=== PATIENT | male | born 1955 | race Caucasian/White ===

== ENCOUNTER 2020-11-11 08:29 | Outpatient (REF) | payer BC, SELFPAY | END 2020-11-11 08:30 | disposition home or self-care (01) | LOC: HO.LAB 08:29 | PROVIDERS: PCP Internal Medicine Medical Oncology; Visit Provider Internal Medicine Medical Oncology | DX: Z20.828 Contact with and (suspected) exposure to other viral communicable diseases (principal) | CPT/HCPCS: C9803; U0003 ==

== ENCOUNTER 2022-02-02 11:05 | Outpatient (REF) | payer BC, SELFPAY ==
[2022-02-02 11:40] LABS: Alanine Aminotransferase 13 U/L (0-40); Albumin Level 4.3 g/dL (3.5-5.0); Alkaline Phosphatase 55 U/L (39-117); Anion Gap 11 (12-20); Aspartate Amino Transferase 20 U/L (5-37); Bilirubin Total 0.7 mg/dL (0.0-1.0); Blood Urea Nitrogen 19 mg/dL (9-16); Calcium 10.3 mg/dL (8.4-10.2); Carbon Dioxide 28 mmol/L (22-29); Chloride 102 mmol/L (96-108); Estimated Glomerular Filt Rate > 60; Glucose Random 95 mg/dL (60-115); Potassium 4.5 mmol/L (3.3-5.1); Sodium 136 mmol/L (135-145); Total Protein 7.3 g/dL (6.5-8.0)
== END 2022-02-02 11:06 | disposition home or self-care (01) ==
LOC: HO.LAB 11:05
PROVIDERS: PCP Internal Medicine Medical Oncology; Visit Provider Internal Medicine Medical Oncology
DX: E66.3 Overweight (principal)
CPT/HCPCS: 36415; 80053

== ENCOUNTER 2022-02-05 16:19 | Outpatient (REF) | payer BC, SELFPAY ==
--- NOTE | ~2022-02-05 | MR_ITS ---
EXAMINATION: MR BRAIN WITHOUT AND WITH CONTRAST CLINICAL INFORMATION: Right parietal centrum semiovale ovale. COMPARISON: None available. TECHNIQUE: Multiplanar, multisequence imaging of the brain was performed before and after the intravenous administration of 8 mL of Gadavist. FINDINGS: There is no acute infarction, mass, hemorrhage, or extra-axial collection. No abnormal or unexpected intracranial enhancement is seen. The ventricles, sulci, and basilar cisterns are normal in size and configuration. Mild to moderate patchy foci of T2/FLAIR hyperintensity are seen within the periventricular and deep cerebral white matter. 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 The flow voids of the major intracranial arteries appear intact. The orbital contents appear normal. There is complete opacification of the right maxillary sinus with expansile soft tissue extending into the middle meatus. Moderate right and mild left ethmoid mucosal thickening is also noted. MR/MR head/brain wo/w con IMPRESSION: No acute intracranial abnormality, mass, or enhancing lesion. Nonspecific foci of T2/FLAIR hyperintensity seen in the bilateral cerebral white matter. Incidentally noted complete opacification of the right maxillary sinus with expansile soft tissue extending into the middle meatus. Consider ENT follow-up.
== END 2022-02-05 16:20 | disposition home or self-care (01) ==
LOC: HO.MRI 16:19
PROVIDERS: PCP Internal Medicine Medical Oncology; Visit Provider Internal Medicine Medical Oncology
DX: Q28.2 Arteriovenous malformation of cerebral vessels (principal); R90.0 Intracranial space-occupying lesion found on diagnostic imaging of central nervous system
CPT/HCPCS: 70553; A9585

== ENCOUNTER → 2022-02-17 07:10 | Outpatient (REF) | payer BC, SELFPAY ==
--- NOTE | 2022-02-17 07:18 | HM_ITS ---
* Total monitoring time 5 days and 16 hours. * Underlying rhythm is sinus. Average rate 64/Min. Range 43 to 115/Min. * No atrial fibrillation or flutter. * There were 17 pauses noted, longest 3.2 seconds at 03:22am. * Mobitz 1 second-degree heart block also noted. * These episodes are mainly at nighttime but some daytime episodes are also seen. * Occasional supraventricular ectopy with minimal burden. * Frequent ventricular ectopy. 2 morphologies. 149 couplets. Overall burden about 5%. * No patient events. MTDD
== END ==
LOC: HO.CARD 07:10
PROVIDERS: Visit Provider Internal Medicine Medical Oncology
DX: I48.91 Unspecified atrial fibrillation (principal)
CPT/HCPCS: 93242

== ENCOUNTER 2022-06-04 07:22 | Emergency (ER) | payer BC, SELFPAY ==
--- NOTE | ~2022-06-04 | XR_ITS ---
EXAMINATION: XR ANKLE, RIGHT CLINICAL INFORMATION: Right ankle pain and swelling. COMPARISON: None TECHNIQUE: AP, lateral, and mortise views of the right ankle. FINDINGS: Nonacute deformity is seen at the level the distal fibular metaphysis. The distal tibia is intact. Minimal tibiotalar degenerative joint changes are seen. The tarsal bones are normally aligned. There is a small plantar calcaneal spur. Mild soft tissue swelling is seen medially. XR/XR ankle RT min 3V IMPRESSION: 1. Mild soft tissue swelling medially without acute underlying osseous abnormality. 2. Probable old healed distal fibular metaphysis fracture. 3. Minimal tibiotalar degenerative joint changes suggesting osteoarthritis. 4. Small plantar calcaneal spur.
[2022-06-04 07:46] VITALS: BP 180/100; PULSE 50; RESP 16; TEMP 36.6; O2SAT 98; BMI 26.2
--- NOTE | 2022-06-04 07:51 | ED_ITS ---
HPI - Extremity Injury (Lower) General Chief Complaint: Extremity Injury, Lower Stated Complaint: R blk&blue ankle with knot Time Seen by Provider: 06/04/22 07:51 Source: patient Mode of arrival: ambulatory Limitations: no limitations History of Present Illness HPI Narrative: Patient is a 67 year old male presenting to the emergency department today with bruising to his right inner ankle. Patient states that he doesn't remember hitting it or bumping it on anything but he noticed it a few days ago and wanted to have it checked out. Patient states that it does not hurt to bear weight on it. Patient states that he had a previous fibula fracture on that same side, years ago. Patient denies any dizziness, lightheadedness, abdominal pain, nausea, vomiting, fever, chills, blurry vision, double vision, loss of vision, chest pain, difficulty breathing, shortness of breath, back pain, night sweats, pain with urination, increased urinary frequency, increased urinary urgency, blood in his urine or stool, syncope or a near syncopal episode, recent trauma or falls, bowel incontinence, bladder incontinence, bowel retention, bladder retention, or any other complaints at this time. Onset (ago): day(s) (5) Severity: mild Severity scale (1-10): 1 Exacerbating factors: nothing Related Data Allergies Allergy/AdvReac Type Severity Reaction Status Date / Time oxycodone [From PERCOCET] AdvReac Unknown VOMITING Unverified 08/15/20 14:40 Review of Systems Constitutional: Constitutional: Reports no additional constitutional complaints, Denies chills, Denies fever(s) and Denies night sweats Eyes: Eyes: Reports no additional eye complaints, Denies blurry vision, Denies change in vision, Denies diplopia, Denies eye discharge, Denies loss of vision and Denies eye pain ENT: Denies dizziness Cardiovascular: Cardiovascular: Reports no additional cardiovascular complaints, Denies chest pain, Denies lightheadedness, Denies Loss of Consciousness and Denies dyspnea Respiratory: Respiratory: Reports no additional respiratory complaints and Denies dyspnea Gastrointestinal: Gastrointestinal: Reports no additional gastrointestinal complaints, Denies abdominal pain, Denies melena, Denies hematochezia, Denies change in bowel habits and Denies change in stool character Genitourinary: Genitourinary: Reports no additional male genitourinary complaints, Denies hematuria, Denies oliguria, Denies difficulty urinating, Denies dysuria, Denies urinary frequency, Denies urinary hesitancy, Denies urinary incontinence and Denies urinary urgency Musculoskeletal: Musculoskeletal: Reports no additional musculoskeletal complaints, Denies numbness and Denies tingling Integumentary/Breasts: Comments: bruising to right ankle Neurologic: Denies dizziness, Denies loss of vision, Denies numbness and Denies tingling Psychiatric: Psychiatric: Reports no additional psychiatric complaints Endocrine: Endocrine: Reports no additional endocrine complaints Hematologic/Lymphatic: Hematologic/Lymphatic: Reports no additional hematologic/lymphatic complaints Allergic/Immunologic: Allergic/Immunologic: Reports no additional allergic/immunologic complaints [facility] Past Medical History Attestation statement: The following information was validated with the patient. Source: old records reviewed Social History Social History Advance Directives: Yes Advance Directives Information Provided: Yes Advance Directives on File: No Physical Exam Vital Signs: Vital Signs: Last Vital Signs Temp 98 F 06/04/22 07:46 Pulse 50 06/04/22 07:46 Resp 16 06/04/22 07:46 BP 180/100 H 06/04/22 07:46 Pulse Ox 98 06/04/22 07:46 O2 Del Method 06/04/22 07:46 BMI result Body Mass Index 26.2 Const: General: cooperative, no acute distress, alert and awake Nutritional Appearance: well nourished Orientation/consciousness: patient oriented x3 Limitations: no limitations HEENT: Head: Yes normal to inspection and Yes atraumatic Ears: hearing grossly normal bilaterally and external ears normal General nose exam: Normal external nose present, no nasal discharge noted and no epistaxis Face and sinus: Yes normal facial exam, No abrasion and No laceration Mouth: Normal oral and palatal mucosa present, no drooling and no muffled voice Eyes: General: appearance normal, both eyes and all related structures Periorbital: periorbital findings normal Eyelids: Yes eyelids normal Conjunctivae: conjunctivae normal Pupils: Equal, round and reactive pupils present EOM: EOMs intact bilaterally Neck: Neck: Yes normal visual inspection, Yes full ROM and Yes no lymphadenopathy Chest: Chest palpation & inspection: normal inspection of the chest Resp: Effort & Inspection: normal respiratory effort and able to speak in complete sentences Auscultation: clear to auscultation bilaterally Cardio: Rate: regular rate Rhythm: regular rhythm GI: Inspection: Yes normal to inspection Neuro: General: patient oriented x3 and moves all extremities Cranial nerves: Yes Equal, round and reactive pupils present Cognition (Neuro): normal cognition Motor exam (neuro): 5/5 motor strength present throughout Sensory Exam: Normal double simultaneous stimulation for sensation Coordination: [id number] test normal Extrem: Other: minimal bruising to the medial aspect of the right ankle with no acute tenderness to palpation General: Yes full ROM and Yes capillary refill normal Psych: Appearance: grossly normal Mental Status: mental status grossly normal Affect: normal affect Attitude: cooperative Thought process: Normal thought process present Thought content: Normal thought content present Insight: Good insight present (Psych) MDM - Extremity Injury (Lower) MDM Narrative Medical decision making narrative: Patient is a 67 year old male presenting to the emergency department today with right ankle bruising. Patient's physical exam showed minimal, old appearing, bruising to the medial right ankle. Patient's right ankle x-ray showed no acute process. I explained my physical exam findings as well as all test results to the patient. I answered all questions asked by the patient. I stressed the importance of the patient taking his medication as prescribed. I stressed the importance of the patient following up with his primary care provider. I stressed the importance of the patient returning to the emergency department immediately if his symptoms were to worsen or if he were to develop any dizziness, shortness of breath, difficulty breathing, chest pain, blurry vision, loss of vision, nausea, vomiting, abdominal pain, fever, chills, back pain, or any other complaints. Patient verbalized agreement and understanding with this treatment plan and discharge. Differential Diagnosis Differential diagnosis: Unlikely ankle fracture (ankle bruising) Medical Records Attestation: I reviewed the patient's medical records. Imaging Data Right ankle x-ray: Attestation: I personally reviewed and interpreted this imaging study as follows: My impression: No acute process Radiologist's impression: EXAMINATION: XR ANKLE, RIGHT CLINICAL INFORMATION: Right ankle pain and swelling.? COMPARISON: None? TECHNIQUE: AP, lateral, and mortise views of the right ankle. FINDINGS: Nonacute deformity is seen at the level the distal fibular metaphysis. The distal tibia is intact. Minimal tibiotalar degenerative joint changes are seen. The tarsal bones are normally aligned. There is a small plantar calcaneal spur. Mild soft tissue swelling is seen medially. XR/XR ankle RT min 3V IMPRESSION: ? 1. Mild soft tissue swelling medially without acute underlying osseous abnormality. 2. Probable old healed distal fibular metaphysis fracture. 3. Minimal tibiotalar degenerative joint changes suggesting osteoarthritis. 4. Small plantar calcaneal spur. Dictated By: Angel Ye MD Signed By: Electronically signed by Angel Ye MD 06/04/22 0808 Discharge Plan Discharge Clinical Impression: Acute ankle pain Patient Disposition: Home, Self-Care Instructions: Arthralgia (ED) Additional Instructions: Follow up with your primary care provider. Return to the emergency department immediately if your symptoms worsen or if you develop any dizziness, shortness of breath, difficulty breathing, chest pain, blurry vision, loss of vision, nausea, vomiting, abdominal pain, fever, chills, back pain, or any other complaints. Referrals: Jacobo Radford MD [Primary Care Provider] - (Follow up with your primary care provider.) Print Language: Georgian
== END 2022-06-04 09:02 | disposition home or self-care (01) ==
PROVIDERS: Emergency Provider Emergency Medicine; PCP Internal Medicine Medical Oncology
DX: S93.401A Sprain of unspecified ligament of right ankle, initial encounter (principal); X50.1XXA Overexertion from prolonged static or awkward postures, initial encounter; Y93.9 Activity, unspecified; Y92.9 Unspecified place or not applicable; Y99.9 Unspecified external cause status
CPT/HCPCS: 29515; 73610; 99282; 99283

== ENCOUNTER → 2022-07-31 09:25 | Outpatient (BNVA) | payer BC, SELFPAY | PROVIDERS: PCP Internal Medicine Medical Oncology; Visit Provider Internal Medicine Cardiovascular Disease | DX: I48.0 Paroxysmal atrial fibrillation (principal); I45.5 Other specified heart block; G47.10 Hypersomnia, unspecified | CPT/HCPCS: 93005 ==

== ENCOUNTER → 2022-08-14 07:25 | Outpatient (REF) | payer BC, SELFPAY ==
--- NOTE | 2022-08-14 07:28 | CA_ITS ---
Acquisition Time: 2022-08-14 08:28:44 Total Exercise Time: 00:06:50 Test Indications: HEART BLOCK Medications: Protocol: ANTHONY Max HR: 144 BPM 93% of Pred: 154 BPM Max BP: 182/082 mmHG Max Work Load: 8.2 METS Exercise stress test with exercise 6 min 50 sec of Anthony protocol, achieving 94% MPHR 8.2 METs, with moderate sob, no chest discomfort, with isolated PAC and PVCs, with normotensive and normal chronotropic response to exercise, without EKG changes meeting criteria for ischemia. Test reviewed with Dr Jones Referred By: Joey Jones Overread By: VIJI VALLES
--- NOTE | 2022-08-14 07:28 | CA_ITS ---
Transthoracic Echocardiogram Patient (Last, First, Middle): Raymundo Schwartz R Gender: Male Date of : 1955 Age: 67 Procedure Date: 08/14/2022 Procedure Type: Transthoracic Echocardiogram Location: OP Height: 175.26 cm Weight: 77.11 kg BSA: 1.93 m2 Heart Rate: 49 bpm BP: 150 / 75 mmHg Stiff Leg Derrick Operator: GAIL Referring MD: Joey Jones MD Podiatrist: Joey Jones MD Symptoms: I48.0 - Paroxysmal atrial fibrillation Study Quality: Good ECG Rhythm: Bradycardia Conclusions: - 1. Normal LV systolic function with grade 1 diastolic dysfunction 2. Normal cardiac valvular Doppler 3. Normal RV systolic pressure 4. Mildly dilated ascending aorta 4.1 cm 5. No pericardial effusion Findings Left Ventricle Normal left ventricular size, thickness, and systolic function. The visually estimated ejection fraction is between 60-65%. Spectral Doppler is indicative of an impaired relaxation filling pattern. E/E prime ratio is <8, consistent with normal filling pressures. Peak GLS is -18.4%, within normal limits. Right Ventricle Normal right ventricular cavity size and systolic function. Atria The left atrium is normal in size. There is lipomatous hypertrophy of the interatrial septum. There is no evidence of interatrial shunt. The right atrium is normal in size. Aortic Valve The aortic valve structure and function is likely normal. There is no aortic valve stenosis. There is no aortic valve regurgitation. Mitral Valve Normal mitral valve structure and function. There is trace mitral valve regurgitation. There is no mitral valve stenosis. Pulmonic Valve The pulmonic valve is likely normal. There is trace pulmonic valve regurgitation. Tricuspid Valve Normal tricuspid valve structure. There is trace tricuspid valve regurgitation. The right ventricular systolic pressure is normal. The right ventricular systolic pressure is 15 mmHg. Normal right atrial pressure. There is no evidence of pulmonary hypertension. Great Vessels The pulmonary artery was not well visualized. There is mild dilatation of the ascending aorta measuring 4.10 cm. Venous The inferior vena cava is normal in size and collapses greater than 50% with inspiration. Pericardium/Pleural There is no evidence of pericardial effusion. Prior Study Comparison No prior study available for comparison. Measurements 2D Linear Measurements IVSd: 1.12 0.6-0.9/0.6-1.0 cm LVIDd: 4.60 3.9-5.3/4.2-5.9 cm LVIDd Index: 2.38 2.4-3.2/2.2-3.1 cm/m2 LVIDs: 2.89 2.0-3.6 cm LVPWd: 0.85 0.7-1.1 cm LA Diam: 3.70 2.7-3.8/3.0-4.0 cm LAIDs Index: 1.92 1.5-2.3 cm/m2 LV Mass: 193.03 67-162/88-224 g LV Mass Index: 100.02 43-95/49-115 g/m2 LVOT Diam: 2.10 3.0+(-)1.3 cm 2D Systolic Function EF 4C: 59.70 >55% EF 2C: 62.70 >55% EF BiP: 61.90 >55% Mitral Valve MV Pk E: 0.68 MV PK A: 0.70 MV Decel Time: 425.00 E/A: 1.00 E'Lateral: 9.90 E'Medial: 6.85 E/E' Med: 9.90 E/E' Lat: 6.90 PHT: 124.00 MVA PHT: 1.77 Decel Ross: 1.60 Aortic Valve AoV Pk Ananth: 1.31 AoV Mn Ananth: 0.90 AoV VTI: 0.30 AoV Pk Grad: 7.00 Aov Mn Grad: 4.00 ALYSSIA Cont.VTI: 2.13 LVOT LVOT Pk Ananth: 0.83 LVOT Mn Ananth: 0.54 LVOT VTI: 0.19 LVOT Pk Grad: 3.00 LVOT Mn Grad: 1.00 LVOT Diam: 2.10 LVOT Area: 3.46 Diastolic Function MV Pk E: 0.68 MV Pk A: 0.70 E/A: 1.00 E'Medial: 6.85 E/E' Med: 9.90 E' Laterial: 9.90 E/E' Lat: 6.90 Right Ventricle TAPSE (mm): 21.30 TVS' Ananth: 13.20 Tricuspid Valve TR Pk Ananth: 1.71 TR Pk Grad: 12.00 RA Press: 3.00 RVSP: 15.00 Great Vessels Aorta Sinus of Valsalva: 3.90 2.0-3.5 cm Ao Asc: 4.10 2.1-3.4 cm Pulmonary Valve PV Pk Ananth: 0.70 Peak PV Grad: 2.00 Updated in Other Vendor System with Status of Final Joey Jones MD electronically signed on 08/15/2022 11:48:29 AM with status of Final
== END ==
LOC: HO.CARD 07:25
PROVIDERS: Visit Provider Internal Medicine Cardiovascular Disease
DX: I48.0 Paroxysmal atrial fibrillation (principal); I45.5 Other specified heart block
CPT/HCPCS: 93017; 93306; 93356

== ENCOUNTER → 2022-08-26 08:35 | Outpatient (REF) | payer BC, SELFPAY | LOC: HO.SL 08:35 | PROVIDERS: PCP Internal Medicine Medical Oncology; Visit Provider Internal Medicine Cardiovascular Disease | DX: Z13.89 Encounter for screening for other disorder (principal) ==

== ENCOUNTER 2023-10-14 11:00 | Outpatient (AMB) | payer BC, SELFPAY ==
[2023-10-14 11:14] VITALS: BP 138/74; PULSE 63; BMI 26.0
--- NOTE | 2023-10-14 11:14 | MHC.OFFVIS ---
Intake Vital Signs 10/14/23 11:14 Height 5 ft 9 in Weight 176 lb 5.917 oz BMI 26.0 BP 138/74 Blood Pressure Location Lt brachial Position Sitting Pulse 63 Intake Visit Reasons: 1 year follow up Intake Note: 1 year follow-up with ekg feeling good [employer] Required: No Allergies oxycodone [From PERCOCET] Adverse Reaction (Unknown, Verified 10/06/22 10:46) VOMITING Medication List - Last Reconciled 10/14/23 by Joey Jones MD amlodipine 5 mg PO DAILY 90 days fluoxetine 10 mg PO DAILY HPI HPI Comments History of Present Illness Details Raymundo comes for follow-up. He denies any cardiovascular complaints. He has been on amlodipine therapy for blood pressure control at this point time. He denies any symptoms of prolonged palpitation irregular heartbeat. Denies any lightheadedness, syncope. No exertional chest pain or shortness of breath. Echocardiogram last at shown mild thoracic aortic aneurysm at 4.1 cm. [facility] Medical History HTN (hypertension) Thoracic aortic aneurysm Paroxysmal atrial fibrillation Social History Alcohol intake: current Alcohol intake frequency: 0-2 drinks per day Alcohol type: beer Patient Tobacco Use Status: Former Tobacco user Quit Date: 1992 Substance Use Type: Marijuana Review of Systems Const Denies chills, Denies fatigue, Denies fever(s), Denies frequent falls, Denies weakness, Denies weight gain and Denies weight loss ENT Denies dizziness Card Denies chest pain, Denies leg edema, Denies lightheadedness, Denies palpitations, Denies dyspnea, Denies dyspnea on exertion, Denies orthopnea and Denies other (loss of consciousness) Resp Denies cough, Denies dyspnea and Denies dyspnea on exertion GI Denies hematochezia and Denies change in stool character Musc Denies abnormal gait, Denies muscle weakness, Denies numbness, Denies radiating pain into limb and Denies tingling Neuro Denies Abnormal speech present, Denies abnormal gait, Denies dizziness, Denies frequent falls, Denies numbness, Denies tingling and Denies weakness Endo Denies fatigue and Denies palpitations Physical Exam Vital Signs: Last Vital Signs Pulse 63 10/14/23 11:14 BP 138/74 10/14/23 11:14 BMI result Body Mass Index 26.0 Const General: cooperative, comfortable, no acute distress, well developed, alert, awake and Physically active Nutritional Appearance: average body habitus and well nourished Orientation/consciousness: patient oriented x3 Limitations: no limitations HEENT Head: Yes atraumatic Neck Neck: Yes trachea midline, Yes supple and Yes no JVD Chest Chest palpation & inspection: normal inspection of the chest Resp Effort & Inspection: normal respiratory effort Auscultation: clear to auscultation bilaterally Cardio Jugular venous distension: no JVD Palpation: normal PMI Rate: regular rate Rhythm: regular rhythm Heart sounds: S1 normal heart sound present, S2 normal heart sound present, no click, no gallops and no murmurs GI Auscultation: normal bowel sounds Skin General skin exam: no rashes or lesions noted Neuro General: patient oriented x3 and no focal motor deficits Speech: No Abnormal speech present Extrem General: Yes no clubbing, cyanosis or edema Office Procedures EKG Details: EKG shows normal sinus rhythm with nonspecific changes in inferior lead [id number], Complete Assessment & Plan Assessment & Plan (1) Paroxysmal atrial fibrillation: Code(s): I48.0 - Paroxysmal atrial fibrillation Plan: Paroxysmal atrial fibrillation without any overt recurrent symptoms. Although he is completely asymptomatic at the time of his detection of atrial fibrillation. He does have underlying risks to have recurrent atrial fibrillation which could be asymptomatic. Avoidance of stimulants was discussed advised to call me with any new symptoms. Cannot tolerate metoprolol therapy due to pauses noted during sleep hours. Advise sleep study which is not been done as yet. Echocardiogram in near future to assess for biatrial chamber size and LV systolic function as well as ascending aortic aneurysm see below. Recommend oral anticoagulation therapy with Eliquis to reduce stroke risk given CHADSVASc score of 2. Semi annual renal function test should be pursued. He agrees (2) Thoracic aortic aneurysm: Code(s): I71.20 - Thoracic aortic aneurysm, without rupture, unspecified Plan: Thoracic aortic aneurysm of mild severity. Follow-up echocardiogram near future. Management of thoracic aortic aneurysm was discussed. Blood pressure is currently well optimized. Advised to continue current blood pressure regimen. Advised to monitor blood pressure at home and maintain a log. No surgical intervention required at this point time. He understands and agrees. Will follow up in the clinic in 1 year's time, sooner p.r.n.. Thank you for allowing me to partake in his care Orders: Orders CA echo transthoracic complete Today I71.20 - Thoracic aortic aneurysm, without rupture, unspecified Basic Metabolic Panel Today I71.20 - Thoracic aortic aneurysm, without rupture, unspecified Medications: New apixaban (Eliquis) 5 mg PO BID 60 tabs 5RF I71.20 - Thoracic aortic aneurysm, without rupture, unspecified Coding Level of Care Code Est Pt Level 4 (86325) Diagnoses Paroxysmal atrial fibrillation I48.0 Thoracic aortic aneurysm I71.20 CPT Codes EKG - CPT: 11853-[id number], Complete ([id number])
== END 2023-10-14 11:33 | disposition home or self-care (01) ==
PROVIDERS: Visit Provider Internal Medicine Cardiovascular Disease
DX: I48.0 Paroxysmal atrial fibrillation (principal); I71.20 Thoracic aortic aneurysm, without rupture, unspecified
CPT/HCPCS: 93010; 99214

== ENCOUNTER → 2023-10-14 11:00 | Outpatient (BNVA) | payer BC, SELFPAY | PROVIDERS: Visit Provider Internal Medicine Cardiovascular Disease | DX: I48.0 Paroxysmal atrial fibrillation (principal); I71.20 Thoracic aortic aneurysm, without rupture, unspecified | CPT/HCPCS: 93005 ==

== ENCOUNTER → 2023-11-09 09:39 | Outpatient (REF) | payer BC, SELFPAY ==
--- NOTE | 2023-11-09 09:45 | CA_ITS ---
Transthoracic Echocardiogram Patient (Last, First, Middle): Raymundo Schwartz R Gender: Male Date of : 1955 Age: 68 Procedure Date: 11/09/2023 Procedure Type: Transthoracic Echocardiogram Location: OP Height: 175.26 cm Weight: 79.38 kg BSA: 1.95 m2 Heart Rate: 48 bpm BP: 146 / 80 mmHg Consultant Nurse: GAIL Referring MD: Joey Jones MD Symptoms: I71.20 - Thoracic aortic aneurysm, without rupture, unspecified Study Quality: Good ECG Rhythm: Bradycardia Conclusions: - The left ventricular systolic function is normal. The calculated ejection fraction is 62% by biplane method. - The basal inferior and basal inferolateral segments are hypokinetic. - No obvious valvular pathology seen on this study. - There is mild dilatation of the ascending aorta measuring 4.30 cm. Findings Left Ventricle Normal left ventricular cavity size. There is normal left ventricular wall thickness. The left ventricular systolic function is normal. The calculated ejection fraction is 62% by biplane method. There is no evidence of regional wall motion abnormalities. Diastolic function is normal for age. LV peak GLS -17.8%. Wall Motion Rest Echo Findings The basal inferior and basal inferolateral segments are hypokinetic. Right Ventricle Normal right ventricular cavity size and systolic function. Atria Both atria are normal in size. Aortic Valve There is a normal trileaflet aortic valve. There is no aortic valve stenosis. There is no aortic valve regurgitation. Mitral Valve The mitral valve appears normal. There is trace mitral valve regurgitation. There is no mitral valve stenosis. Pulmonic Valve The pulmonic valve is likely normal. Tricuspid Valve Normal tricuspid valve structure. There is trace tricuspid valve regurgitation. Great Vessels There is mild dilatation of the ascending aorta measuring 4.30 cm. Venous The inferior vena cava is normal in size and collapses greater than 50% with inspiration. Pericardium/Pleural There is no evidence of pericardial effusion. Prior Study Comparison Changes noted compared to prior study dated: 08/14/2022. see comment on wall motion Recommendations, Care & Conclusions No obvious valvular pathology seen on this study. Measurements 2D Linear Measurements IVSd: 0.91 0.6-0.9/0.6-1.0 cm LVIDd: 4.98 3.9-5.3/4.2-5.9 cm LVIDd Index: 2.55 2.4-3.2/2.2-3.1 cm/m2 LVIDs: 2.77 2.0-3.6 cm LVPWd: 0.93 0.7-1.1 cm LA Diam: 3.80 2.7-3.8/3.0-4.0 cm LAIDs Index: 1.95 1.5-2.3 cm/m2 LV Mass: 201.46 67-162/88-224 g LV Mass Index: 103.31 43-95/49-115 g/m2 LVOT Diam: 2.20 3.0+(-)1.3 cm 2D Systolic Function EF 4C: 55.50 >55% EF 2C: 68.20 >55% EF BiP: 62.40 >55% Mitral Valve MV Pk E: 0.59 MV PK A: 0.82 MV Decel Time: 275.00 E/A: 0.70 E'Lateral: 10.80 E'Medial: 5.87 E/E' Med: 10.00 E/E' Lat: 5.40 PHT: 81.00 MVA PHT: 2.72 Decel [place]: 2.13 Aortic Valve AoV Pk Ananth: 1.17 AoV Mn Ananth: 0.82 AoV VTI: 0.26 AoV Pk Grad: 5.00 Aov Mn Grad: 3.00 ALYSSIA Cont.VTI: 2.52 LVOT LVOT Pk Ananth: 0.78 LVOT Mn Ananth: 0.55 LVOT VTI: 0.17 LVOT Pk Grad: 2.00 LVOT Mn Grad: 1.00 LVOT Diam: 2.20 LVOT Area: 3.80 Diastolic Function MV Pk E: 0.59 MV Pk A: 0.82 E/A: 0.70 E'Medial: 5.87 E/E' Med: 10.00 E' Laterial: 10.80 E/E' Lat: 5.40 Right Ventricle TAPSE (mm): 17.80 TVS' Ananth: 10.20 Tricuspid Valve TR Pk Ananth: 1.04 TR Pk Grad: 4.00 RA Press: 3.00 RVSP: 7.00 Great Vessels Aorta Sinus of Valsalva: 3.90 2.0-3.5 cm Ao Asc: 4.30 2.1-3.4 cm Pulmonary Valve PV Pk Ananth: 0.69 Peak PV Grad: 2.00 Updated in Other Vendor System with Status of Final Lowell Fuentes MD electronically signed on 11/10/2023 9:02:06 AM with status of Final
== END ==
LOC: HO.CARD 09:39
PROVIDERS: PCP Internal Medicine Medical Oncology; Visit Provider Internal Medicine Cardiovascular Disease
DX: I71.20 Thoracic aortic aneurysm, without rupture, unspecified (principal)
CPT/HCPCS: 93306; 93356

== ENCOUNTER → 2023-11-09 09:45 | Outpatient (BNV) | payer BC, SELFPAY | PROVIDERS: PCP Internal Medicine Medical Oncology; Visit Provider Internal Medicine | DX: R94.31 Abnormal electrocardiogram [ECG] [EKG] (principal); I71.20 Thoracic aortic aneurysm, without rupture, unspecified | CPT/HCPCS: 93306 ==

== ENCOUNTER → 2024-02-03 08:36 | Outpatient (REF) | payer BC, SELFPAY ==
--- NOTE | ~2024-02-03 | NM_ITS ---
Myocardial perfusion study Indication: Abnormal echocardiogram to evaluate for myocardial ischemia Technique: The patient was brought in for a Lexiscan perfusion study on 02/03/2024. Patient performed low-level exercise and was injected 0.4 mg of Lexiscan intravenously. Within a minute of injection, 25 mCi of sestamibi was given intravenously. Images were obtained using the SPECT gamma camera interlaced with the gating device. Images were obtained in supine position. Resting perfusion study was performed on 02/04/2024. Patient was administered 25 mCi of sestamibi intravenously at rest. Images were then obtained in supine position. Images obtained with and without CT attenuation. Total DLP 142 mGy-cm. Images were processed with the software and compared side to side in short axis, horizontal long axis and vertical long axis views. Findings: The stress perfusion study showed non attenuated images show moderately reduced uptake in the distal inferolateral as well as lateral and mildly reduced uptake in the remainder of inferolateral wall of the LV myocardium. Attenuated corrected images show mildly reduced uptake in the apex, and distal anterior wall of the LV myocardium.. The gated study shows normal LV systolic function with calculated LVEF of 62%. LV cavity is normal in size. The gated study shows normal systolic wall thickening and contraction of segments. Resting study shows non attenuated images show improved uptake in the inferolateral as well as the distal lateral wall of the LV myocardium.. Gating at rest reveals normal systolic wall motion with ejection fraction at 55%. The findings are consistent with mild to moderate intensity reversible defect in the inferolateral as well as distal lateral wall of the LV myocardium which could suggest ischemia.. NM/NM cardiolite stress test Impression: 1. Myocardial perfusion imaging study shows mild to moderate intensity reversible defect in the inferolateral and apical portion of the lateral wall suggestive of ischemia probably in circumflex territory 2. Gated LVEF is 62% 3. Transient ischemic dilatation not present EKG is nondiagnostic for ischemia
--- NOTE | 2024-02-03 08:38 | CA_ITS ---
Acquisition Time: 2024-02-03 09:21:37 Total Exercise Time: 00:02:00 Test Indications: Afib Medications: See H Protocol: LEXISCAN Max HR: 090 BPM 58% of Pred: 153 BPM Max BP: 160/088 mmHG Max Work Load: 1.0 METS Pharmacological stress test with Lexiscan injection while sitting and kicking his legs, without anginal symptoms, with isolated PVCs, with normotenisve response to exericse, with nondiagnostic EKGs. Aminophylline 75mg IVP given to reverse Lexiscan. Nuclear images pending. Test reviewed with Dr. Mullen. Referred By: Joey Jones Overread By: Cheyenne Paz
== END ==
LOC: HO.CARD 08:36
PROVIDERS: PCP Internal Medicine Medical Oncology; Visit Provider Internal Medicine Cardiovascular Disease
DX: I48.0 Paroxysmal atrial fibrillation (principal); I71.20 Thoracic aortic aneurysm, without rupture, unspecified
CPT/HCPCS: 78452; 93017; A9500; J0280; J2785

== ENCOUNTER → 2024-02-03 08:38 | Outpatient (BNV) | payer BC, SELFPAY | PROVIDERS: PCP Internal Medicine Medical Oncology; Visit Provider Nurse Practitioner | DX: I48.0 Paroxysmal atrial fibrillation (principal); R94.31 Abnormal electrocardiogram [ECG] [EKG] | CPT/HCPCS: 78452; 93016; 93018 ==

== ENCOUNTER 2024-02-29 10:50 | Outpatient (REF) | payer BC, SELFPAY ==
[2024-02-29 11:55] LABS: Anion Gap 10 (12-20); Blood Urea Nitrogen 15 mg/dL (9-16); Calcium 9.6 mg/dL (8.4-10.2); Carbon Dioxide 30 mmol/L (22-29); Chloride 103 mmol/L (96-108); Estimated Glomerular Filt Rate > 60; Glucose Random 122 mg/dL (60-115); Potassium 4.5 mmol/L (3.3-5.1); Sodium 138 mmol/L (135-145)
== END 2024-02-29 10:51 | disposition home or self-care (01) ==
LOC: HO.LAB 10:50
PROVIDERS: PCP Internal Medicine Medical Oncology; Visit Provider Internal Medicine Cardiovascular Disease
DX: I71.20 Thoracic aortic aneurysm, without rupture, unspecified (principal)
CPT/HCPCS: 36415; 80048

== ENCOUNTER 2024-06-12 09:59 | Outpatient (REF) | payer BC, SELFPAY ==
[2024-06-12 11:11] LABS: Anion Gap 13 (12-20); Blood Urea Nitrogen 18 mg/dL (9-16); Carbon Dioxide 25 mmol/L (22-29); Chloride 106 mmol/L (96-108); Estimated Glomerular Filt Rate > 60; Glucose Random 90 mg/dL (60-115); Potassium 4.4 mmol/L (3.3-5.1); Sodium 140 mmol/L (135-145)
== END 2024-06-12 10:00 | disposition home or self-care (01) ==
LOC: HO.LAB 09:59
PROVIDERS: PCP Internal Medicine Medical Oncology; Visit Provider Internal Medicine Cardiovascular Disease
DX: R94.39 Abnormal result of other cardiovascular function study (principal); I71.20 Thoracic aortic aneurysm, without rupture, unspecified; I48.0 Paroxysmal atrial fibrillation; I10 Essential (primary) hypertension; I45.5 Other specified heart block
CPT/HCPCS: 36415; 80048

== ENCOUNTER 2024-06-27 09:12 | Emergency (ER) | payer BC, SELFPAY ==
[2024-06-27 09:27] VITALS: BP 174/90; PULSE 50; RESP 16; TEMP 37; O2SAT 99; BMI 27.8
[2024-06-27] MEDS: Fluorescein Sodium STRIP 1 STRIP EYE-LEFT (10:38)
[2024-06-27] MEDS: Tetracaine HCl/PF 0.5% Oph Sol 4 ML DROPS 1 DROP EYE-LEFT (10:38)
--- NOTE | 2024-06-27 10:43 | ED_ITS ---
HPI - Eye Problem General Chief complaint: Eye Problems Stated complaint: Object in L eye Time Seen by Provider: 06/27/24 09:31 Source: patient and RN notes reviewed Mode of arrival: ambulatory Limitations: no limitations History of Present Illness ED Provider: Mitzi Mckeon PA-C HPI Narrative: This is a 69-year-old male, with a history of hypertension and paroxysmal atrial fibrillation on Eliquis, who presents emergency department with complaints of foreign body in his left eye. Patient states that he was grinding metal on and accidentally got a piece of metal stuck in his left eye. He was not wearing safety glasses at the time. He has been rinsing his I and states that he was able to get it to move, he states that he is unable to remove the foreign body. He reports some blurred vision from his left eye, as well as slight discomfort, denies severe eye pain. No fevers or chills. He is unsure when his last tetanus shot was. No other complaints or concerns at this time. MD chief complaint: eye pain, eye injury and foreign body Onset (ago): day(s) Onset description: sudden Duration: constant Location: left eye Eye Symptoms: redness, pain and foreign body sensation Place: home Mechanism: direct trauma Severity: mild If Pain, Quality: aching Associated symptoms: none Treatments Prior to Arrival: irrigated eye Related Data Patient tetanus UTD: No Home Medications ?Medication ?Instructions ?Recorded ?Confirmed fluoxetine 10 mg capsule 10 mg PO DAILY 07/31/22 10/14/23 Previous Rx's ?Medication ?Instructions ?Recorded amlodipine 5 mg tablet 5 mg PO DAILY #90 tabs 11/08/23 apixaban 5 mg tablet (Eliquis) 5 mg PO BID #60 tabs 04/07/24 erythromycin 5 mg/gram (0.5 %) eye 1 appl ophthalmic-Left QID 7 days 06/27/24 ointment #3.5 grams Allergies Allergy/AdvReac Type Severity Reaction Status Date / Time oxycodone [From PERCOCET] AdvReac Unknown VOMITING Verified 06/27/24 09:29 Review of Systems Review of Systems: Yes all other systems are reviewed and are negative Constitutional: Constitutional: Reports as per [facility] Past Medical History Medical History HTN (hypertension) Thoracic aortic aneurysm Paroxysmal atrial fibrillation Social History Social History Alcohol intake: current Alcohol intake frequency: 0-2 drinks per day Alcohol type: beer Patient Tobacco Use Status: Former Tobacco user Substance Use Type: Marijuana Advance Directives: No Physical Exam Vital Signs: Vital Signs: Last Vital Signs Temp 98.6 F 06/27/24 09:27 Pulse 50 06/27/24 09:27 Resp 16 06/27/24 09:27 BP 174/90 H 06/27/24 09:27 Pulse Ox 99 06/27/24 09:27 O2 Del Method Room Air 06/27/24 09:27 BMI result Body Mass Index 27.8 Const: General: cooperative, comfortable and no acute distress Orientation/consciousness: patient oriented x3 Limitations: no limitations HEENT: Head: Yes normal to inspection, Yes normocephalic and Yes atraumatic Ears: hearing grossly normal bilaterally General nose exam: Normal external nose present Face and sinus: Yes normal facial exam Mouth: Normal oral and palatal mucosa present, oropharynx normal and moist mucous membranes Throat: Yes posterior oropharynx normal Eyes: Other: Left eye with punctate foreign body noted at approximately the 8 o'clock position just outside iris, slight conjunctival injection. Slight yellow crusting noted to the medial canthus. No pain with extraocular movements. No surrounding periorbital cellulitis or edema. Negative Javier sign General: appearance normal, both eyes and all related structures Eyelids: Yes eyelids normal Conjunctivae: conjunctivae normal Sclerae: sclerae normal Pupils: Equal, round and reactive pupils present EOM: EOMs intact bilaterally Neck: Neck: Yes normal visual inspection, Yes full ROM and Yes no lymphadenopathy Lymphatic: no lymphadenopathy noted Chest: Chest palpation & inspection: normal inspection of the chest Resp: Effort & Inspection: normal respiratory effort and able to speak in complete sentences Auscultation: clear to auscultation bilaterally, no crackles, no rales, no rhonchi and no wheezes Cardio: Rate: regular rate Rhythm: regular rhythm Heart sounds: S1 normal heart sound present and S2 normal heart sound present GI: Inspection: Yes normal to inspection Skin: General skin exam: no rashes or lesions noted Trauma: no lacerations or abrasions Wounds: no wounds Neuro: General: patient oriented x3 and moves all extremities Cranial nerves: Yes Equal, round and reactive pupils present Extrem: General: Yes normal to inspection Right upper extremity: normal to inspection Left upper extremity: normal to inspection Right lower extremity: normal to inspection Left lower extremity: normal to inspection Medications Administered Discontinued Medications Generic Name Dose Route Start Last Admin Trade Name Mitchell PRN Reason Stop Dose Admin Fluorescein Sodium 1 strip 06/27/24 10:06/27/24 10:38 Fluorescein Sodium Strip EYE-LEFT 06/27/24 10:10 1 strip ONCE ONE Administration Tetracaine HCl 1 drop 06/27/24 10:06/27/24 10:38 Tetracaine Hcl/Pf 0.5% Oph [place] 4 Ml Drops EYE-LEFT 06/27/24 10:10 1 drop ONCE ONE Administration Medical Decision Making Medical Decision Making MDM Narrative: This is a 69-year-old male, with a history of paroxysmal atrial fibrillation, and hypertension, who presents emergency department with complaints of foreign body and left eye since . Patient was grinding piece of metal when suddenly he felt something go into his left eye. He has been attempting to remove this with ice flushing without any relief. On physical exam, notable foreign body noted, see procedure note for further detail. This was able to be removed using 18 gauge needle, patient tolerated procedure well without any c omplications or concerns. Will treat with erythromycin to prevent infection. Advised follow-up with Dr. Sarkar. If any new or worsening symptoms occur, given return precautions. Patient stable for discharge Differential Diagnosis Differential Diagnoses: The differential diagnosis associated with the presentation includes Foreign body, corneal abrasion, laceration, conjunctivitis Procedures FB Removal Eye Time Out performed: Yes Location: eye (L) Topical anesthetic used: tetracaine Foreign body: metal Evidence of corneal penetration: No Technique: irrigation, cotton tip swab and needle Procedure performed under: direct visualization with magnification Patient tolerated procedure: well Discharge Plan Discharge Clinical Impression: Foreign body in eyeball, left, Abrasion, corneal Patient Disposition: Home, Self-Care Instructions: Corneal Abrasion (ED), Eye Foreign Body (ED) Additional Instructions: You were seen in the emergency department after having a metal foreign body in your left eye. We are able to successfully remove this. Please use erythromycin ointment 4 times a day for the next 7 days. Please watch for any worsening symptoms or signs, including but not limited to severe eye pain, changes in your vision, drainage from the eye. If any of these occur, please return or follow-up with Dr. Sarkar. Dr. Sarkar is the referral to the morning show newscast producer that I am giving you today. You can call to follow-up with him. We also updated your tetanus shot in the department today. Prescriptions: New erythromycin 5 mg/gram (0.5 %) ointment 1 appl ophthalmic-Left QID 7 Days Qty: 3.5 0RF No Action amlodipine 5 mg tablet 5 mg PO DAILY Qty: 90 3RF Eliquis 5 mg tablet 5 mg PO BID Qty: 60 2RF fluoxetine 10 mg capsule 10 mg PO DAILY Referrals: Nitesh Sarkar [Physician] - Print Language: Korean
[2024-06-27] MEDS: Diphth,Pertus(ACell),Tet Adult 0.5 ML SYRINGE IM (10:45)
[2024-06-27 10:49] VITALS: BP 160/80; PULSE 55; RESP 18; TEMP 37; O2SAT 99
== END 2024-06-27 10:50 | disposition home or self-care (01) ==
PROVIDERS: Emergency Provider Emergency Medicine; PCP Internal Medicine Medical Oncology
DX: S05.52XA Penetrating wound with foreign body of left eyeball, initial encounter (principal); H57.12 Ocular pain, left eye; W44.H0XA Other sharp object unspecified, entering into or through a natural orifice, initial encounter; Y93.89 Activity, other specified; Y92.89 Other specified places as the place of occurrence of the external cause; Y99.8 Other external cause status; Z23 Encounter for immunization
CPT/HCPCS: 65220; 90471; 90715; 99282; 99284

== ENCOUNTER 2024-12-06 09:46 | Outpatient (AMB) | payer BC, SELFPAY ==
[2024-12-06 09:54] VITALS: BP 132/80; PULSE 50; BMI 28.1
--- NOTE | 2024-12-06 09:54 | MHC.OFFVIS ---
Vital Signs 12/06/24 09:54 Height 5 ft 6 in Weight 174 lb 2.643 oz BMI 28.1 BP 132/80 Blood Pressure Location Lt brachial Position Sitting Pulse 50 Pulse Source Monitor Intake Visit Reasons: 1 year follow up Allergies oxycodone [From PERCOCET] Adverse Reaction (Unknown, Verified 06/27/24 09:29) VOMITING Medication List - Last Reconciled 12/06/24 by Joey Jones MD amlodipine 5 mg PO DAILY apixaban (Eliquis) 5 mg PO BID 90 days fluoxetine 10 mg PO DAILY rosuvastatin 20 mg PO DAILY HPI Comments Details: Raymundo comes for follow-up. He is accompanied by his . Denies any symptoms of palpitation with irregular heartbeat. He said he has not been taking his Eliquis as recommended only takes it once a day as it gives him dizziness. He has not had any major bleeding issues although says when he gets hurt he does bleed for longer period of time which is expected, I told him. He has not had any major other vital organ bleeding. He wants to pursue Watchman device. Otherwise he has no symptoms of angina. Takes his medications. No lightheadedness, syncope. [facility] Medical History HTN (hypertension) Thoracic aortic aneurysm Paroxysmal atrial fibrillation Social History Alcohol intake: current Alcohol intake frequency: 0-2 drinks per day Alcohol type: beer Patient Tobacco Use Status: Former Tobacco user Substance Use Type: Marijuana Review of Systems Const Denies weakness ENT Denies dizziness Card Denies chest pain, Denies chest pain with activity, Denies syncope, Denies rapid heart rate, Denies pedal edema, Denies edema, Denies leg edema, Denies lightheadedness, Denies palpitations, Denies dyspnea, Denies dyspnea on exertion and Denies orthopnea Resp Denies cough, Denies dyspnea and Denies dyspnea on exertion GI Denies hematochezia and Denies change in stool character Musc Denies abnormal gait, Denies muscle cramps, Denies muscle weakness, Denies numbness, Denies radiating pain into limb and Denies tingling Neuro Denies Abnormal speech present, Denies abnormal gait, Denies dizziness, Denies syncope, Denies numbness, Denies tingling and Denies weakness Endo Denies palpitations Physical Exam Vital Signs: Last Vital Signs Pulse 50 12/06/24 09:54 BP 132/80 12/06/24 09:54 BMI result Body Mass Index 28.1 Const General: cooperative, comfortable, no acute distress, well developed, alert, awake and Physically active Nutritional Appearance: average body habitus and well nourished Orientation/consciousness: patient oriented x3 Limitations: no limitations HEENT Head: Yes atraumatic Neck Neck: Yes trachea midline, Yes supple and Yes no JVD Chest Chest palpation & inspection: normal inspection of the chest Resp Effort & Inspection: normal respiratory effort Auscultation: clear to auscultation bilaterally Cardio Jugular venous distension: no JVD Palpation: normal PMI Rate: regular rate Rhythm: abnormal rhythm irregularly irregular Heart sounds: S1 normal heart sound present, S2 normal heart sound present, no click, no gallops and no murmurs GI Auscultation: normal bowel sounds Skin General skin exam: no rashes or lesions noted Neuro General: patient oriented x3 and no focal motor deficits Speech: No Abnormal speech present Extrem General: Yes no clubbing, cyanosis or edema Office Procedures EKG Details: EKG shows atrial fibrillation with slow ventricular response at 50 beats per minute [id number], Complete Assessment & Plan Assessment & Plan (1) Persistent atrial fibrillation: Code(s): I48.19 - Other persistent atrial fibrillation Category: Medical Plan: Persistent atrial fibrillation in this elderly gentleman with CHADSVASc score of 3. Importance of compliance with medication was discussed. He said he can not tolerate twice a day therapy with Eliquis and has symptoms of dizziness which is unusual side effect. Would want to switch to a once a day drug. Will switch him to Xarelto 20 mg daily. He also wants to consider Watchman device, I told him the indications for Watchman device and currently does not have FDA approved indication for Watchman device. Will refer him however for evaluation of Watchman device on his insistence. Continue to avoid stimulants. Recommend to pursue rate control approach as he is currently having no symptoms of heart failure or any symptoms related to it. He is resistant to further treatment options. Advised to call me if he gets more symptoms of weakness or tiredness or shortness of breath that may require more aggressive rhythm control approach. (2) CAD (coronary artery disease): Code(s): I25.10 - Atherosclerotic heart disease of [place] coronary artery without angina pectoris Category: Medical Plan: Nonobstructive CAD. Continue aggressive risk factor modification. Blood pressure is well optimized. Continue high-intensity statin therapy. Target goal LDL closer to 60 mg/dL. (3) Thoracic aortic aneurysm: Code(s): I71.20 - Thoracic aortic aneurysm, without rupture, unspecified Category: Medical Plan: Mild thoracic aortic aneurysm. Will follow up with echocardiogram in 6 months time. No interventions required from surgical perspective. Continue aggressive vascular risk factor modifications above. Blood pressure is currently well optimized advised to avoid sudden strenuous isometric exercise. Will follow up in the clinic in 6 months time, sooner p.r.n.. Thank you for allowing me to partake in his care Orders: Orders CA echo transthoracic complete 6 Months I71.20 - Thoracic aortic aneurysm, without rupture, unspecified Coding Level of Care Code Est Pt Level 4 (01975) Complex EM visit Add On G2211 Diagnoses Persistent atrial fibrillation I48.19 CAD (coronary artery disease) I25.10 Thoracic aortic aneurysm I71.20 CPT Codes EKG - CPT: 66412-[id number], Complete ([id number])
== END 2024-12-06 10:24 | disposition home or self-care (01) ==
PROVIDERS: PCP Internal Medicine Medical Oncology; Visit Provider Internal Medicine Cardiovascular Disease
DX: I48.19 Other persistent atrial fibrillation (principal); I25.10 Atherosclerotic heart disease of native coronary artery without angina pectoris; I71.20 Thoracic aortic aneurysm, without rupture, unspecified
CPT/HCPCS: 93010; 99214

== ENCOUNTER → 2024-12-06 09:46 | Outpatient (BNVA) | payer BC, SELFPAY | PROVIDERS: PCP Internal Medicine Medical Oncology; Visit Provider Internal Medicine Cardiovascular Disease | DX: I48.19 Other persistent atrial fibrillation (principal); I25.10 Atherosclerotic heart disease of native coronary artery without angina pectoris; I71.20 Thoracic aortic aneurysm, without rupture, unspecified; Z79.899 Other long term (current) drug therapy | CPT/HCPCS: 93005 ==

== ENCOUNTER 2025-01-24 13:56 | Outpatient (REF) | payer BC, SELFPAY ==
--- NOTE | ~2025-01-24 | XR_ITS ---
CLINICAL HISTORY: LUMBAR RADICULOPATHY, LUMBAR BACK PAIN 3 views lumbar spine Comparison: None Findings: Normal alignment. No acute fractures or dislocation. There is relatively severe multilevel degenerative disc disease. There is mild levoscoliosis. IMPRESSION: No acute findings. Degenerative changes as above. This document has been electronically signed by: Logan Benson MD on 01/25/2025 08:29:39
--- OUTSIDE RECORDS SUMMARY | 2025-01-24 17:10 | XMS_ITS ---
Author Organization Jacobo Radford III, MD Address [address] [place] [address] [place] [address] Care Team Providers Care Glue Spreader Name Role Phone Jacobo Radford Primary Care Provider REASON FOR VISIT Rx Request Social History Sex Assigned At : Social History Observation Description Sex Assigned At Male Encounters Encounter Location Date Provider Diagnosis Jacobo Radford III, MD [address] [place] [address] [place] [address] 01/02/2025 Jacobo Radford Plan Of Treatment Next Appt Details Provider Name:Jacobo Radford, 01/29/2025 09:15:00 AM, [address] [place] [address] [place], [address], Provider Name:Jacobo Radford, 05/30/2025 09:30:00 AM, [address] [place] [address] [place], [id number], Progress Notes * Raymundo SCHWARTZ RDOB: [birth year] (69 yo M)Acc No.[id number]:01/02/2025 Patient:?Raymundo SCHWARTZ :1955???Age:69 Y???Sex:Male Address:[address] [place], [address] * true * Date:? Generated for Printi ng/Faxing/eTransmitting on:?01/24/2025 05:10 PM EST
--- OUTSIDE RECORDS SUMMARY | 2025-01-24 17:11 | XMS_ITS ---
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 Name Role Phone Jacobo Radford Primary Care Provider Allergies Allergen (clinical drug ingredient) Drug/Non Drug Allergy documented on EMR Reaction Allergy Type Onset Date Status acetaminophen / oxycodone Percocet nausea Drug Allergy Active REASON FOR VISIT Lower back pain that projects down the left leg x 9 days Medications Medication SIG (Take, Route, Frequency, Duration) Notes Start Date End Date Status amLODIPine Besylate 5 MG Oral Active Rosuvastatin Calcium 20 MG 1 tablet Oral ly Once a day 01/24/2025 Active Gabapentin 300 MG 1 capsule Orally thr ee times a day for 10 days 01/24/2025 Active dexAMETHasone 2 MG 1 tablet Orally ever y 12 hrs for 10 days 01/24/2025 Active FLUoxetine HCl 10 MG TAKE 1 CAPSULE BY M OUTH EVERY DAY Active Eliquis 5 MG TAKE 1 TABLET BY FRANKY TH TWICE A DAY Oral Active Social History Tobacco Use: Social History Observation Description Date Details (start date - stop date) Former Smoker NA - NA Sex Assigned At : Social History Observation Description Sex Assigned At Male Tobacco Use/Smoking Question Answer Notes Patient is a former smoker How long has it been since you last smoked? > 10 years Additional Findings: Tobacco Non-User Aggressive non-smoker Vital Signs Temperature 97.2 degrees Fahrenheit 01/24/20 25 Blood pressure systolic 129 mm Hg 01/24/20 25 Blood pressure diastolic 102 mm Hg 025 Heart Rate 74 /min 01/24/2025 Height 66.25 in 01/24/2025 Weight 180 lbs 01/24/2025 BMI 28.83 kg/m2 01/24/2025 Encounters Encounter Location Date Provider Diagnosis Jacobo Radford III, MD [address] [place] [address] [place] [address] 01/24/2025 Jacobo Radford Lumbar radiculopathy M54.16 and Lumbar back pain M54.50 Assessments Encounter Date Diagnosis (ICD Code) Assessment Notes Treat ment Notes Treatment Clinical Notes 01/24/2025 Lumbar radiculopathy (ICD-10 - M54.16) 01/24/2025 Lumbar back pain (ICD-10 - M54.50) Plan Of Treatment Medication Medication Name Sig Start Date Stop Date Notes amLODIPine Besylate 5 MG Oral Rosuvastatin Calcium 20 MG 1 tablet Orally Once a day 12/31 Gabapentin 300 MG 1 capsule Orally thr ee times a day for 10 days 01/24/2025 dexAMETHasone 2 MG 1 tablet Orally ever y 12 hrs for 10 days 01/24/2025 FLUoxetine HCl 10 MG TAKE 1 CAPSULE BY M OUTH EVERY DAY Eliquis 5 MG TAKE 1 TABLET BY FRANKY TH TWICE A DAY Oral Pending Test Test Name Order Date XR lumbar spine 2-3V 01/24/2025 Next Appt Details Follow Up: 1 Week, Reason: [facility] Provider Name:Jacobo Radford, 01/29/2025 09:15:00 AM, [address] [place] [address] JON CHAMPION, NIRMAL [place], [id number], Provider Name:Jacobo Radford, 05/30/2025 09:30:00 AM, [address] [place] [address] JON CHAMPION, NIRM[place], [id number], Progress Notes * Raymundo SCHWARTZ RDOB: [birth year] (69 yo M)Acc No.[id number]:01/24/2025 Progress Notes Patient:?Raymundo SCHWARTZ Provider:?Jacobo Radford MD :1955???Age:69 Y???Sex:Male Clemente e:01/24/2025 Address:[address] [place], [place] [address]ADDIE GAINES, WALDEMAR ROSE [id number] Subjective: * Chief Complaints: * ???1. Lower back pain that p rojects down the left leg x 9 days. * HPI: ???COVID-19 Screening:? 10 days,? teeny better, saw chiro today, everst chiro adam nathaly mondragon had [phone]. ?Questions?Have you had any new onset fever, chills, cough, congestion, sore throat, shortness of breath, muscle aches??No * ROS:?General/Constitutional:?pain?only normal aches and pains.?Chills?denies.?Fatigue?admits.?Fever?denies.?ENT:?Decreased hearing?denies.?Respiratory:?Cough?denies.?Cardiovascular:?Chest pain with exertion?denies.?Dyspnea on exertion?denies.?Shortness of breath?denies.?Gastrointestinal:?Constipation?denies.?Decreased appetite?denies.?Diarrhea?denies.?Heartburn?denies.?Nausea?denies.?Rectal bleeding?denies.?Vomiting?denies.?Hematology:?bruising?denies.?petechiae?denies.?Swollen glands?none have been noted.?Genitourinary:?Frequent urination?denies.?Musculoskeletal:?Muscle aches?denies.?Painful joints?denies.?Sciatica?denies.?Weakness?denies.?Skin:?Itching?denies.?Rash?denies.?Skin lesion(s)?denies.?Neurologic:?Difficulty speaking?denies.?Dizziness?denies.?Headache?denies.?Low back pain?denies.?Psychiatric:?Depressed mood?denies.? 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 2016, Repaired epigastric hernia, 2014, calcium 10.8, 2014. Prepatellar effusion, March 2017. Microscopic hematuria, Asbestos exposure, Atrial fibrillation December 2021, Abnormality right parietal centrum ovale. * Surgical History:?epigastric hernia repair 2005, colonoscopy, tubular adenoma 2013, excision basal cell carcinoma right neck, Dr. Nunez 2016, colonoscopy 2008, appendectomy [facility] 2016, Dehydration Seizure 2021, Colonoscopy, Dr. Ryan, 2 polyps at ascending colon 2023. * Hospitalization/Major Diagno stic Procedure:?Dehydration from nausea and vomiting and diarrhea 12/2021. * Family History:?Father: dece ased 75 yrs, Emphysema, lung cancer, osteoarthritis, diagnosed with Cancer.?Mother: alive 73 yrs, TIA, stroke, diagnosed with CVD.? One of his sisters has a history of brain cancer. A brother at 62 of urothelial cancer. * Social History:?Tobacco Use:?Tobacco Use/Smoking?Patient is a?former smoker ?How long has it been since you last smoked??> 10 years ?Additional Findings: Tobacco Non-User?Aggressive non-smoker ???He lives in [place], [place] and is retired but works 30 hours a week in the [employer] business. In the past. He has had occupational exposure to asbestos. He has one brother and 2 sisters. He has been to [place] for 18 years and they have one child, a son, Bull. * Medications:?Taking FLUoxeti ne HCl 10 MG Capsule TAKE 1 CAPSULE BY MOUTH EVERY DAY , Taking amLODIPine Besylate 5 MG Tablet Oral , Taking Eliquis 5 MG Tablet TAKE 1 TABLET BY MOUTH TWICE A DAY Oral , Taking Rosuvastatin Calcium 20 MG Tablet 1 tablet Orally Once a day , Discontinued Azithromycin 250 MG Tablet as directed Orally 2 Tablets on the first day, one tablet the rest of the days , Medication List reviewed and reconciled with the patient * Allergies:?Percocet: nausea - Allergy. Objective: * Vitals:?Ht: 66.25, Wt:180, B MO:28.83, BP:129/102, HR:74, Temp:97.2, Ht-cm: 168.28, Wt-k.65. * Examination: ???General Examination: ?GENERAL APPEARANCE:?pleasant, well nourished, well developed, in no acute distress, calm and relaxed.?HEAD:?atraumatic, normocephalic.?EYES:?eomi, perrla, anicteric, conjugate.?EARS:?normal.?NOSE:?septum intact.?ORAL CAVITY:?normal, unremarkable.?NECK/THYROID:?no jugular venous distention, no carotid bruit, thyroid normal.?LYMPH NODES:?no enlarged lymph nodes,spleen normal.?SKIN:?no suspicious lesions, anicteric.?HEART:?no clicks, gallops, murmurs, or rubs, regular rhythm, S1, S2 normal, no s3, or vascular bruits.?LUNGS:?clear to auscultation .?BREASTS:??no masses palpable bilaterally.?ABDOMEN:?bowel sounds normal, no ascites, no organomegaly, no mass.?RECTAL EXAM:?not examined.?MUSCULOSKELETAL:?extremities unremarkable, no clubbing, cyanosis or edema.?PERIPHERAL PULSES:?normal.?NEUROLOGIC:?alert and oriented, cranial nerves 2-12 grossly intact, deep tendon reflexes 2+ symmetrical, motor strength normal upper and lower extremities, sensory exam intact.?PSYCH:?alert, oriented.? Assessment: * Assessment: 1.?Lumbar radiculopathy - M5 4.16???2.?Lumbar back pain - M54.50??? Plan: * Treatment: 2.?Lumbar back pain?Imaging: XR lumbar spine 2-3V 3.?Others? Continue FLUoxetine HCl Capsule, 10 MG, TAKE 1 CAPSULE BY MOUTH EVERY DAY;?Continue amLODIPine Besylate Tablet, 5 MG, Oral;?Continue Eliquis Tablet, 5 MG, TAKE 1 TABLET BY MOUTH TWICE A DAY, Oral;?Continue Rosuvastatin Calcium Tablet, 20 MG, 1 tablet, Orally, Once a day;?Start Gabapentin Capsule, 300 MG, 1 capsule, Orally, three times a day, 10 days, 30 Capsule, Refills 3; Start dexAMETHasone Tablet, 2 MG, 1 tablet, Orally, every 12 hrs, 10 days, 20 Tablet, Refills 1.?? * Follow Up:?1 Week (Reason: [facility]) * Images: * The named appointment provid er may or may not be the originator of this progress note, and it is not deemed complete until electronically signed by the appointment provider. Sign off status: Pending * Provider:?Jacobo Radford MD Date:?12/31 Generated for Markel bai/Ana Paula/Holly on:?01/24/2025 05:10 PM EST History and Physical Notes * HPI (History of Present Illness) Category Sub-Category Detail Notes COVID-19 Screening Questions Have you had any new onset fever, chills, cough, congestion, sore throat, shortness of breath, muscle aches?: No Examination Category Sub-Category Detail Notes General Examination GENERAL APPEARANCE: pleasant , well nourished, well developed, in no acute distress, calm and relaxed HEAD: atraumatic, normocep halic EYES: eomi, perrla, anicte rylan, conjugate EARS: normal NOSE: septum intact NECK/THYROID: no jugular venous di stention, no carotid bruit, thyroid normal HEART: no clicks, gallops, murmurs, or rubs, regular rhythm, S1, S2 normal, no s3, or vascular bruits LUNGS: clear to auscultatio n ABDOMEN: bowel sounds normal, no ascites, no organomegaly, no mass NEUROLOGIC: alert and oriented, cranial nerves 2-12 grossly intact, deep tendon reflexes 2+ symmetrical, motor strength normal upper and lower extremities, sensory exam intact SKIN: no suspicious lesion s, anicteric PERIPHERAL PULSES: normal BREASTS: no masses palpable b ilaterally MUSCULOSKELETAL: extremities unremark able, no clubbing, cyanosis or edema LYMPH NODES: no enlarged lymph no mak,spleen normal RECTAL EXAM: not examined PSYCH: alert, oriented ORAL CAVITY: normal, unremarkable
--- OUTSIDE RECORDS SUMMARY | 2025-01-24 17:11 | XMS_ITS | Patient Health Record ---
Author Organization Jacobo Radford III, MD Address [address] [place] [address] [facility] [place] [address] Care Team Providers Care Rewrite Editor Name Role Phone Jacobo Radford Primary Care Provider [phone] Allergies Allergen (clinical drug ingredient) Drug/Non Drug Allergy documented on EMR Reaction Allergy Type Onset Date Status acetaminophen / oxycodone Percocet nausea Drug Allergy Active Results Component Value Reference Range Notes URINE DIP STICK Reviewed date:05/29/2024 10:22:08 AM Interpretation: Performing Lab: Notes/Report: SG 1.010 1.005 - 1.025 pH 5.0 5.0 - 9.0 JERMAINE Negative Negative - NIT Negative Negative - PRO 15 Negative - Trace GLU Negative Negative - KET Negative Negative - UBG 0.2 0.1 - 1.8 ALEXIA Negative 0.2 - 1.3 BLD Positive Negative - NM cardiolite stress test Reviewed date:07/16/2024 08:44:30 AM Interpretation: Performing Lab: Notes/Report: [address] [address] Nuclear Medicine Report Signed Patient: Raymundo Schwartz MR#: [id number] : 1955 Acct:[id number] Age/Sex: 68 / M ADM Date: 02/03/24 Loc: HO.CARD Attending Dr: Joey Jones MD Ordering Physician: Joey Jones MD Date of Service: 02/03/24 Procedure(s): NM cardiolite stress test Accession Number(s): [id number] cc: Jacobo Radford MD; Joey Jones MD Myocardial perfusion study Indication: Abnormal echocardiogram to evaluate for myocardial ischemia Technique: The patient was brought in for a Lexiscan perfusion study on 02/03/2024. Patient performed low-level exercise and was injected 0.4 mg of Lexiscan intravenously. Within a minute of injection, 25 mCi of sestamibi was given intravenously. Images were obtained using the SPECT gamma camera interlaced with the gating device. Images were obtained in supine position. Resting perfusion study was performed on 02/04/2024. Patient was administered 25 mCi of sestamibi intravenously at rest. Images were then obtained in supine position. Images obtained with and without CT attenuation. Total DLP 142 mGy-cm. Images were processed with the software and compared side to side in short axis, horizontal long axis and vertical long axis views. Findings: The stress perfusion study showed non attenuated images show moderately reduced uptake in the distal inferolateral as well as lateral and mildly reduced uptake in the remainder of inferolateral wall of the LV myocardium. Attenuated corrected images show mildly reduced uptake in the apex, and distal anterior wall of the LV myocardium.. The gated study shows normal LV systolic function with calculated LVEF of 62%. LV cavity is normal in size. The gated study shows normal systolic wall thickening and contraction of segments. Resting study shows non attenuated images show improved uptake in the inferolateral as well as the distal lateral wall of the LV myocardium.. Gating at rest reveals normal systolic wall motion with ejection fraction at 55%. The findings are consistent with mild to moderate intensity reversible defect in the inferolateral as well as distal lateral wall of the LV myocardium which could suggest ischemia.. NM/NM cardiolite stress test Impression: 1. Myocardial perfusion imaging study shows mild to moderate intensity reversible defect in the inferolateral and apical portion of the lateral wall suggestive of ischemia probably in circumflex territory 2. Gated LVEF is 62% 3. Transient ischemic dilatation not present EKG is nondiagnostic for ischemia Dictated By: Joey Jones MD Signed By: <Electronically signed by Joey Jones MD in OV> 02/04/24 1517 DD/ 0830 TD/TT: Aerospace Technician: [place] [id number] Nuclear Medicine Report Signed Patient: Kati Schwartz MR#: [id number] : 1955 Acct:[id number] Age/Sex: 68 / M ADM Date: 02/03/24 Loc: SHAYY Attending Dr: Joey Jones MD Ordering Physician: Joey Jones MD Date of Service: 02/03/24 Procedure(s): NM cardiolite stress test Accession Number(s): [id number] cc: Jacobo Radford MD; Joey Jones MD Myocardial perfusion study Indication: Abnormal echocardiog jackie to evaluate for myocardial ischemia Technique: The patient was brou t in for a Lexiscan perfusion study on 02/03/2024. Patient performed low-level exercise and was injected 0.4 mg of Lexiscan intravenously. Within a minute of injection, 25 mCi of sestamibi was given intravenously. Images were obtained using the SPECT gamma camera interla low with the gating device. Images were obtained in supine position. Resting perfusion st udy was performed on 02/04/2024. Patient was administered 25 mCi of sestamibi intravenously at rest. Images were then obtained in sup ine position. Images obtained with and without CT attenuation. Total DLP 142 mGy-cm. Images were processe d with the software and compared side to side in short axis, horizont al long axis and vertical long axis views. Findings: The stress perfusion study showed non attenuated images show moderately reduced uptake in the distal inferolateral as well as lateral and mildly reduced uptake in the remainder of inferolateral wall of the LV myocardium. Attenuated corrected images show mildly reduced uptake in th e apex, and distal anterior wall of the LV myocardium.. The gat ed study shows normal LV systolic function with calculated LVEF of 6 2%. LV cavity is normal in size. The gated study shows normal systoli c wall thickening and contraction of segments. Resting study shows non attenuated images show improved uptake in the inferolateral as wel l as the distal lateral wall of the LV myocardium.. Gating at rest revea ls normal systolic wall motion with ejection fraction at 55%. The findings are consistent with mild to moderate intensity reversible defect in the inferolateral as well as distal lateral wall of the LV myocardium which cou ld suggest ischemia.. N M/NM cardiolite stress test Impression: 1. Myocardial perfus ion imaging study shows mild to moderate intensity reversible defect in the inferolateral and apical portion of the lateral wall suggest brady of ischemia probably in circumflex territory 2. Gated LVEF is 62% 3. Transient ischemi c dilatation not present EKG is nondiagnostic for ischemia Dictated By: Tariq Jones MD Signed By: <Electronically signed by Joey Jones MD in OV> 02/04/24 1517 DD/ 0830 TD/TT: Aerospace Technician: Basic Metabolic Panel Reviewed date:07/16/2024 08:44:30 AM Interpretation: Performing Lab:[facility], [address] [place] [id number] Notes/Report: Sodium 138 135-145 mmol/L Potassium 4.5 3.3-5.1 mmol/L Chloride 103 96-108 mmol/L Carbon Dioxide 30 22-29 mmol/L Anion Gap 10 12-20 Blood Urea Nitrogen 15 9-16 mg/dL Creatinine 1.06 0.5-1.4 mg/dL Estimated Glomerular Filt Rate > 60 NOTE: For -Citizen Of [place] individuals, multiply the result by 1.210. Chronic Kidney Disease: Estimated GFR < 60 mL/min/1.73m2 Severe Kidney Disease: Estimated GFR < 15 mL/min/1.73m2 Glucose Random 122 60-115 mg/dL Calcium 9.6 8.4-10.2 mg/dL SCREENING COLONOSCOPY Reviewed date:05/25/2024 10:23:08 AM Interpretation:undefined Performing Lab: Notes/Report: undefined Basic Metabolic Panel Reviewed date:07/16/2024 08:44:30 AM Interpretation: Performing Lab:[facility], [address] [place] [id number] Notes/Report: Sodium 140 135-145 mmol/L Potassium 4.4 3.3-5.1 mmol/L Chloride 106 96-108 mmol/L Carbon Dioxide 25 22-29 mmol/L Anion Gap 13 12-20 Blood Urea Nitrogen 18 9-16 mg/dL Creatinine 1.17 0.5-1.4 mg/dL Estimated Glomerular Filt Rate > 60 NOTE: For -Citizen Of [place] individuals, multiply the result by 1.210. Chronic Kidney Disease: Estimated GFR < 60 mL/min/1.73m2 Severe Kidney Disease: Estimated GFR < 15 mL/min/1.73m2 Glucose Random 90 60-115 mg/dL Calcium 10.0 8.4-10.2 mg/dL Reason For Referral No Information Medications Medication SIG (Take, Route, Frequency, Duration) Notes Start Date End Date Status FLUoxetine HCl 10 MG TAKE 1 CAPSULE BY M OUTH EVERY DAY Active amLODIPine Besylate 5 MG Oral Active Immunizations Vaccine Route Administration Date Status Comme nts Decline: Influenza Unknown 09/30/2021 Refused Social History Tobacco Use: Social History Observation Description Date Details (start date - stop date) Former Smoker NA - NA Sex Assigned At : Social History Observation Description Sex Assigned At Male Tobacco Use/Smoking Question Answer Notes Patient is a former smoker How long has it been since you last smoked? > 10 years Additional Findings: Tobacco Non-User Aggressive non-smoker Alcohol Screen Question Answer Notes Did you have a drink contain ing alcohol in the past year? Yes How often did you have a dri nk containing alcohol in the past year? 2 to 3 times a week (3 points) How many drinks did you have on a typical day when you were drinking in the past year? 10 or more drinks (4 points) How often did you have 6 or more drinks on one occasion in the past year? Weekly (3 points) Points 10 Interpretation Positive Problems Problem Type SNOMED Code ICD Code Onset Dates Problem Status W/U Status Risk Notes Problem 4682714 Former smoker (Z87.891) Active confirmed He seems highly motivated not to smoke. We have discussed a plan to prevent relapse in times of stress and illness. Problem 949654491 Overweight (E66.3) Active confirmed He has gained 3 pounds and his body mass index is 27. We discussed weight reduction strategies and lifestyle modification. Problem 59735581 Hyperglycemia (R73.9) Active confirmed I have ordered a comprehensive blood work with a fasting glucose to be done in the next few days. 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 He has been followed by ENT. Problem 815874651 Paroxysmal atrial fibrillation (I48.0) Active confirmed He has been seen by cardiology with a follow-up visit in one year. A Holter monitor showed only sinus rhythm. He has had no palpitations recently. He was in a regular rhythm today. Problem 30953466 Chronic maxillary sinusitis (J32.0) Active confirmed The right maxillary sinus was opacified on the MRI with a suggestion of a soft tissue mass invading the meatus. An ENT consultation has been requested. Problem Mass of intracranial structure (finding) (55798892) Intracranial space-occupying lesion found on diagnostic imaging of central nervous system (R90.0) Active confirmed He has had no intracranial bleeding and is free of symptoms at this time. Observation will continue. Problem Benign prostatic hyperplasia (503850994) BPH (benign prostatic hyperplasia) (N40.0) Active confirmed He reports nocturia once or twice a night. We have discussed lifestyle modification as a way to reduce nocturia. Problem 178757512 History of adenomatous polyp of colon (Z86.010) Active confirmed He will have a colonoscopy every 5 years. Problem 68527534 Bilateral inguinal hernia without obstruction or gangrene, recurrence not specified (K40.20) Active confirmed These are not clinically apparent. They were seen on CT scanning and will be observed. Problem Depressive disorder (disorder) (58577426) Depression, unspecified depression type (F32.9) Active confirmed He will be continued on his fluoxetine. He does not seem depressed today. At some point a trial without the medication would be indicated. Problem Atrial fibrillation (68963892) A-fib (I48.91) Active confirmed Problem 78798734233358 History of hepatitis C (Z86.19) Active confirmed He was treated in this has resolved. There is no evidence for cirrhosis of the liver. Problem 391691491 Osteoarthritis of spine with radiculopathy, lumbar region (M47.26) Active confirmed He is currently asymptomatic from this problem. He is avoiding heavy lifting and excessive exertion. He will return to the office if there is an exacerbation. 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 It was read as showing no acute abnormality in the brain. The right maxillary sinus was opacified and the reading was expansive soft tissue mass into the middle meatus. An ENT evaluation will be necessary. Problem 902593636 History of asbestos exposure (Z77.090) Active confirmed He will have a chest x-ray periodically. 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 Problem 957722456 Vasovagal episode (R55) Active confirmed Vital Signs Heart Rate 58 /min 05/29/2024 Temperature 98.2 degrees Fahrenheit 05/29/2024 Blood pressure diastolic 82 mm Hg 05/29/2024 Height 66.25 in 05/29/2024 Blood pressure systolic 140 mm Hg 05/29/2024 Weight 173 lbs 05/29/2024 BMI 27.71 kg/m2 05/29/2024 Encounters Encounter Location Date Provider Diagnosis Jacobo Radford III, MD [address] [place] [address] [place] [address] 05/29/2024 Jacobo Radford Overweight E66.3 ; Depression, unspecified depression type F32.9 ; Hyperglycemia R73.9 ; BPH (benign prostatic hyperplasia) N40.0 ; History of hepatitis C Z86.19 ; History of adenomatous polyp of colon Z86.010 ; Former smoker Z87.891 ; Arteriovenous malformation of brain Q28.2 ; Osteoarthritis of spine with radiculopathy, lumbar region M47.26 ; History of asbestos exposure Z77.090 ; Intracranial space-occupying lesion found on diagnostic imaging of central nervous system R90.0 ; Paroxysmal atrial fibrillation I48.0 and Malignant neoplasm of maxillary sinus C31.0 Jacobo Radford III, MD [address] [place] [address] [place] [id number] 11/03/2024 Jacobo Radford III, MD [address] [place] [address] [place] [id number] 11/03/2024 Jacobo Radford III, MD [address] [place] [address] [place] [id number] 11/28/2024 Jacobo Radford III, MD [address] [place] [address] [place] [id number] 11/30/2024 Jacobo Radford III, MD [address] [place] [address] [place] [id number] 01/02/2025 Jacobo Radford III, MD [address] [place] [address] [place] [id number] 01/04/2025 Jacobo Radford Assessments Encounter Date Diagnosis (ICD Code) Assessment Notes Treat ment Notes Treatment Clinical Notes 05/29/2024 Overweight (ICD-10 - E66.3) He has gained 3 pounds and his body mass index is 27. We discussed weight reduction strategies and lifestyle modification. 05/29/2024 Depression, unspecified depression type (ICD-10 - F32.9) He will be continued on his fluoxetine. He does not seem depressed today. At some point a trial without the medication would be indicated. 05/29/2024 Hyperglycemia (ICD-1 0 - R73.9) I have ordered a comprehensive blood work with a fasting glucose to be done in the next few days. 05/29/2024 BPH (benign prostati c hyperplasia) (ICD-10 - N40.0) He reports nocturia once or twice a night. We have discussed lifestyle modification as a way to reduce nocturia. 05/29/2024 History of hepatitis C (ICD-10 - Z86.19) He was treated in this has resolved. There is no evidence for cirrhosis of the liver. 05/29/2024 History of adenomatous polyp of colon (ICD-10 - Z86.010) He will have a colonoscopy every 5 years. 05/29/2024 Former smoker (ICD-1 0 - Z87.891) He seems highly motivated not to smoke. We have discussed a plan to prevent relapse in times of stress and illness. 05/29/2024 Arteriovenous malformation of brain (ICD-10 - Q28.2) The MRI was done February 05, 2022 with thinned without contrast at . It was read as showing no acute abnormality in the brain. The right maxillary sinus was opacified and the reading was expansive soft tissue mass into the middle meatus. An ENT evaluation will be necessary. 05/29/2024 Osteoarthritis of spine with radiculopathy, lumbar region (ICD-10 - M47.26) He is currently asymptomatic from this problem. He is avoiding heavy lifting and excessive exertion. He will return to the office if there is an exacerbation. 05/29/2024 History of asbestos exposure (ICD-10 - Z77.090) He will have a chest x-ray periodically. 05/29/2024 Intracranial space-occupying lesion found on diagnostic imaging of central nervous system (ICD-10 - R90.0) He has had no intracranial bleeding and is free of symptoms at this time. Observation will continue. 05/29/2024 Paroxysmal atrial fibrillation (ICD-10 - I48.0) He has been seen by cardiology with a follow-up visit in one year. A Holter monitor showed only sinus rhythm. He has had no palpitations recently. He was in a regular rhythm today. 05/29/2024 Malignant neoplasm o f maxillary sinus (ICD-10 - C31.0) He remains in remission at this time. He has been followed by ENT. Plan Of Treatment Pending Test Test Name Order Date PROFILE, FASTING (COMPREHENSIVE METABOLI C) 05/24/2023 PROFILE, FASTING (COMPREHENSIVE METABOLI C) 09/19/2018 PROFILE, FASTING (COMPREHENSIVE METABOLI C) 09/30/2021 PROFILE, FASTING (COMPREHENSIVE METABOLI C) 05/29/2024 PROFILE, FASTING (COMPREHENSIVE METABOLI C) 08/01/2020 PROFILE, FASTING (COMPREHENSIVE METABOLI C) 03/20/2019 PROFILE, RANDOM (COMPREHENSIVE METABOLIC ) 01/30/2022 LIPID PANEL 03/20/2019 LIPID PANEL 05/24/2023 LIPID PANEL 09/19/2018 LIPID PANEL 09/30/2021 LIPID PANEL 08/01/2020 PSA, TOTAL 08/01/2020 PSA, TOTAL 03/20/2019 PSA, TOTAL 05/24/2023 PSA, TOTAL 09/19/2018 PSA, TOTAL 05/29/2024 PSA, TOTAL 09/30/2021 CBC w DIFF 08/01/2020 CBC w DIFF 03/20/2019 CBC w DIFF 05/24/2023 CBC w DIFF 09/19/2018 CBC w DIFF 09/30/2021 CBC WITH AUTO DIFF 05/29/2024 SARS COV2 RNA RT PCR 10/31/2020 Lipid Panel 05/29/2024 Next Appt Details Provider Name:Jacobo Radford, 01/24/2025 01:30:00 PM, [address] [place] [address] [address], [place], [address], Provider Name:Jacobo Radford, 05/30/2025 09:30:00 AM, [address] [place] [address] [address], [place], [address], Insurance Providers Payer Name Payer Address Payer Phone Subscriber Number Group Number Insured Name Patient Relationship to Insured Coverage Start Date Coverage End Date [facility] [address] [place], [place] [id number] Raymundo Ritchie Self - patient is the insured Medical (General) History Medical History History ICD Code Hepatitis C virus infection without hepa tic coma, unspecified chronicity B19.20 Tubular adenoma D36.9 history of cerumen impaction former smoker, 60 pack years, discontinu ed in 1993 history of tubular adenoma basal cell carcinoma right neck, excised 2016 overweight degenerative disc disease of the lumbar spine with sciatica history of depression. 2016 repaired epigastric hernia 2014, calcium 10.8 2013. Prepatellar effusion March 2017. Microscopic hematuria asbestos exposure Atrial fibrillation December 2021 Abnormality right parietal centrum ovale Surgical History Surgery Date(Month/Year) Colonoscopy, Dr. Ryan, 2 polyps at as cending colon 2023 Dehydration Seizure 2021 appendectomy 2017 colonoscopy 2009 excision basal cell carcinoma right neck , Dr. Nunez 2016 colonoscopy, tubular adenoma 2013 epigastric hernia repair 2005 Hospitalization History Reason Date(Month/Year) Dehydration from nausea and vomiting and diarrhea 12/2021
--- OUTSIDE RECORDS SUMMARY | 2025-01-24 17:11 | XMS_ITS ---
Author Organization Jacobo Radford III, MD Address [address] [place] [address] [place] [address] Care Team Providers Care Editor House Organ Name Role Phone Jacobo Radford Primary Care Provider [phone] REASON FOR VISIT told patient to call Social History Sex Assigned At : Social History Observation Description Sex Assigned At Male Encounters Encounter Location Date Provider Diagnosis Jacobo Radford III, MD [address] [place] [address] [place] [address] 01/04/2025 Jacobo Radford Plan Of Treatment Next Appt Details Provider Name:Jacobo Radford, 01/29/2025 09:15:00 AM, [address] [place] [address] [place], [address], Provider Name:Jacobo Radford, 05/30/2025 09:30:00 AM, [address] [place] [address] [address] [facility] [place] [place], [address], Progress Notes * Raymundo SCHWARTZ RDOB: [birth year] (69 yo M)Acc No.[id number]:01/04/2025 Patient:?Raymundo SCHWARTZ :1955???Age:69 Y???Sex:Male Address:[address] [place], [address] * true * Date:? Generated for Printi richardson/Ana Paula/eTransmitting on:?01/24/2025 05:10 PM EST
== END 2025-01-24 13:57 | disposition home or self-care (01) ==
LOC: HO.XRAY 13:56
PROVIDERS: PCP Internal Medicine Medical Oncology; Visit Provider Internal Medicine Medical Oncology
DX: M54.16 Radiculopathy, lumbar region (principal); M54.50 Low back pain, unspecified
CPT/HCPCS: 72100

== ENCOUNTER → 2025-01-24 14:02 | Outpatient (BNV) | payer BC, SELFPAY | PROVIDERS: PCP Internal Medicine Medical Oncology; Visit Provider Radiology Diagnostic Radiology | DX: M54.16 Radiculopathy, lumbar region (principal) | CPT/HCPCS: 72100 ==

== ENCOUNTER 2025-03-03 08:50 | Outpatient (REF) | payer BC, SELFPAY ==
--- NOTE | ~2025-03-03 | MR_ITS ---
CLINICAL HISTORY: BP, LBP RADIATING DOWN LEGS MR lumbar spine without gadolinium Comparison: CR/SR - XR LUMBAR SPINE 2-3V - 01/24/25 14:13 EST Findings: Mild lumbar levocurvature is better seen on the prior radiographs. The usual lumbar lordosis is maintained without spondylolisthesis. Vertebral body heights are maintained. Multilevel degenerative endplate changes which are most conspicuous on the left at L1-L2. Conus medullaris terminates normally at L1-L2. A 1 cm intracanalicular Tarlov cyst is present at the superior aspect of S3. Bilateral renal cysts. L1-L2: A disc osteophyte complex indents the thecal sac and mildly narrows the left lateral recess. Neural foraminal narrowing is moderate to severe on the left. L2-L3: A disc osteophyte complex indents the thecal sac. Mild right and minimal left neural foraminal narrowing. L3-L4: A disc osteophyte complex indents the thecal sac. Neural foraminal narrowing is moderate on the right. L4-L5: A disc osteophyte complex indents the thecal sac. There is a superimposed left central/foraminal disc extrusion and/or epidural hematoma which abuts the transiting left L5 nerve root and moderately narrows the left neural foramen. Cranial extension measures 1.3 cm along the L4 posterior endplate. Mild bilateral facet osteoarthritis. Minimal right neural foraminal narrowing. L5-S1: A small disc osteophyte complex minimally indents the thecal sac. Mild left facet osteoarthritis. Neural foraminal narrowing is moderate on the left. IMPRESSION: 1. Acute left lower extremity radiculopathy is likely related to a left central/foraminal disc extrusion and/or epidural hematoma at L4-L5 with 1.3 cm of cranial extension which abuts the transiting left L5 nerve root and moderately narrows the left neural foramen. 2. Additional multilevel degenerative changes as above. This document has been electronically signed by: Asad Vieyra DO on 03/03/2025 11:19:36
--- OUTSIDE RECORDS SUMMARY | 2025-03-03 08:52 | XMS_ITS | Patient Health Record ---
Author Organization Jacobo Radford III, MD Address [address] [place] [address] [facility] [place] [address] Care Team Providers Care Stain Wiper Name Role Phone Jacobo Radford Primary Care [...] 0.2 - 1.3 BLD Positive Negative - XR lumbar spine 2-3V Reviewed date:02/20/2025 09:14:28 AM Interpretation: Performing Lab: Notes/Report: [address] [address] XRay Report Signed Patient: Raymundo Schwartz MR#: [id number] : 1955 Acct:[id number] Age/Sex: 69 / M ADM Date: 01/24/25 Loc: HO.XRAY Attending Dr: Jacobo Radford MD Ordering Physician: Jacobo Radford MD Date of Service: 01/24/25 Procedure(s): XR lumbar spine 2-3V Accession Number(s): [id number] cc: Jacobo Radford MD CLINICAL HISTORY: LUMBAR RADICULOPATHY, LUMBAR BACK PAIN 3 views lumbar spine Comparison: None Findings: Normal alignment. No acute fractures or dislocation. There is relatively severe multilevel degenerative disc disease. There is mild levoscoliosis. IMPRESSION: No acute findings. Degenerative changes as above. This document has been electronically signed by: Logan Benson MD on 01/25/2025 08:29:39 Dictated By: Logan Benson MD Signed By: <Electronically signed by Logan Benson MD in OV> 01/25/25829 DD/ 8 TD/TT: 01/25/25828 [employer] Consultant: [address] [address] XRay Report Signed Patient: Kati Schwartz MR#: [id number] : 1955 Acct:[id number] Age/Sex: 69 / M ADM Date: 01/24/25 Loc: HO.XRAY Attending Dr: Jacobo Radford MD Ordering Physician: Jacobo Radford MD Date of Service: 01/24/25 Procedure(s): XR lum bar spine 2-3V Accession Number(s): [id number] cc: Jacobo Radford MD CLINICAL HISTORY: JULIUS MBAR RADICULOPATHY, LUMBAR BACK PAIN 3 views lumbar spine Comparison: None Findings: Normal alignment. No acute fractures o r dislocation. There is relatively severe multilevel degenerative disc disease. There is mild levoscoliosis. IMPRESSION: No acute findings. Degenerative changes as above. This document has be en electronically signed by: Logan Benson MD on 01/25/2025 08:29:39 Dictated By: Logan Benson MD Signed By: <Electronically signed by Logan Benson MD in OV> 01/25/25829 DD/ 8 TD/TT: 01/25/25828 [employer] Consultant: SCREENING COLONOSCOPY Reviewed date:05/25/2024 10:23:08 AM Interpretation:undefined Performing Lab: Notes/Report: undefined Basic Metabolic Panel Reviewed date:07/16/2024 08:44:30 AM Interpretation: Performing Lab:[facility], [address] [place] [address] Notes/Report: Sodium 140 135-145 mmol/L Potassium 4.4 3.3-5.1 mmol/L Chloride 106 96-108 mmol/L Carbon Dioxide 25 22-29 mmol/L Anion Gap 13 12-20 Blood Urea Nitrogen 18 9-16 mg/dL Creatinine 1.17 0.5-1.4 mg/dL Estimated Glomerular Filt Rate > 60 NOTE: For -Moroc[place] individuals, multiply the result by 1.210. Chronic [...] Active amLODIPine Besylate 5 MG Oral Active Eliquis 5 MG TAKE 1 TABLET BY FRANKY TH TWICE A DAY Oral Active Rosuvastatin Calcium 20 MG 1 tablet Oral ly Once a day 01/24/2025 Active Gabapentin 300 MG 1 capsule Orally thr ee times a day 01/24/2025 Active dexAMETHasone 2 MG 1 tablet Orally ever y 12 hrs 01/24/2025 Active Immunizations Vaccine Route Administration Date Status [...] Problem Status W/U Status Risk Notes Problem 1805174 Former smoker (Z87.891) Active confirmed He seems highly motivated not to smoke. We have discussed a plan to prevent relapse in times of stress and illness. Problem 414313420 Overweight (E66.3) Active confirmed He has gained 3 pounds and his body mass index is 27. We discussed weight reduction strategies and lifestyle modification. Problem 57785224 Hyperglycemia (R73.9) Active confirmed I have ordered a comprehensive blood work with a fasting glucose to be done in the next few days. Problem Lumbar radiculopathy (359947051) Lumbar radiculopathy (M54.16) Active confirmed He has a viral load my instructions and reports a 60% decrease in the pain. He will continue on his regimen for another 3 days and then gradually return to work.TThe MRI will be done on March 02, 2025. Problem 237931116 Paroxysmal atrial fibrillation (I48.0) Active confirmed He has been seen by cardiology with a follow-up visit in one year. A Holter monitor showed only sinus rhythm. He has had no palpitations recently. He was in a regular rhythm today. Problem 86776316 Chronic maxillary sinusitis (J32.0) Active confirmed The right maxillary sinus was opacified on the MRI with a suggestion of a soft tissue mass invading the meatus. An ENT consultation has been requested. Problem Mass of intracranial structure (finding) (76803776) Intracranial space-occupying lesion found on diagnostic imaging of central nervous system (R90.0) Active confirmed He has had no intracranial bleeding and is free of symptoms at this time. Observation will continue. Problem Benign prostatic hyperplasia (047307739) BPH (benign prostatic hyperplasia) (N40.0) Active confirmed He reports nocturia once or twice a night. We have discussed lifestyle modification as a way to reduce nocturia. Problem 723545339 Anticoagulated (Z79.01) Active confirmed He was continued on the Eliquis. Problem 802513946 History of adenomatous polyp of colon (Z86.010) Active confirmed He will have a colonoscopy every 5 years. Problem 27064346 Bilateral inguinal hernia without obstruction or gangrene, recurrence not specified (K40.20) Active confirmed These are not clinically apparent. They were seen on CT scanning and will be observed. Problem Depressive disorder (disorder) (98701352) Depression, unspecified depression type (F32.9) Active confirmed He will be continued on his fluoxetine. He does not seem depressed today. At some point a trial without the medication would be indicated. Problem Atrial fibrillation (57822457) A-fib (I48.91) Active confirmed Problem 43769439515916 History of hepatitis C (Z86.19) Active confirmed He was treated in this has resolved. There is no evidence for cirrhosis of the liver. Problem 035641257499927 Sciatica of left side (M54.32) Active confirmed The pain is slowly improving. He has no lumbar pain today. His medications will continue unchanged for another 7 days. If it does not resolve he will be referred to pain management for injections. Problem 241476874 Osteoarthritis of spine with radiculopathy, lumbar region (M47.26) Active confirmed He is currently asymptomatic from this problem. He is avoiding heavy lifting and excessive exertion. He will return to the office if there is an exacerbation. 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 It was read as showing no acute abnormality in the brain. The right maxillary sinus was opacified and the reading was expansive soft tissue mass into the middle meatus. An ENT evaluation will be necessary. Problem 885334147 History of asbestos exposure (Z77.090) Active confirmed He will have a chest x-ray periodically. 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 Problem 807137070 Vasovagal episode (R55) Active confirmed Vital Signs Heart Rate 74 /min 01/24/2025 Temperature 97.2 degrees Fahrenheit 01/24/2025 Blood pressure diastolic 82 mm Hg 01/24/2025 Height 66.25 in 02/27/2025 Blood pressure systolic 129 mm Hg 01/24/2025 Weight 180 lbs 02/27/2025 BMI 28.83 kg/m2 02/27/2025 Encounters Encounter Location Date Provider Diagnosis Jacobo Radford III, MD [address] [place] [address] [place] [address] 05/29/2024 Jacobo Radford Overweight E66.3 ; Depression, [...] maxillary sinus C31.0 Jacobo Radford III, MD [address] [place] [address] [place] [address] 01/24/2025 Jacobo Radford Lumbar radiculopathy M54.16 ; Sciatica of left side M54.32 ; Depression, unspecified depression type F32.9 ; History of hepatitis C Z86.19 ; History of adenomatous polyp of colon Z86.010 ; Former smoker Z87.891 ; Overweight E66.3 ; Mucocele of maxillary sinus J34.1 ; Paroxysmal atrial fibrillation I48.0 and Anticoagulated Z79.01 Jacobo Radford III, MD [address] [place] [address] [place] [address] 01/29/2025 Jacobo Radford Lumbar radiculopathy M54.16 ; Overweight E66.3 ; Former smoker Z87.891 ; Paroxysmal atrial fibrillation I48.0 ; BPH (benign prostatic hyperplasia) N40.0 and Depression, unspecified depression type F32.9 Jacobo Radford III, MD [address] [place] [address] [place] [address] 02/05/2025 Jacobo Radford Sciatica of left king e M54.32 ; Depression, unspecified depression type F32.9 ; Former smoker Z87.891 ; Overweight E66.3 and Osteoarthritis of spine with radiculopathy, lumbar region M47.26 Jacobo Radford III, MD [address] [place] [address] [place] [address] 02/13/2025 Jacobo Radford Depression, unspecif ied depression type F32.9 ; Paroxysmal atrial fibrillation I48.0 ; Former smoker Z87.891 ; Overweight E66.3 ; Arteriovenous malformation of brain Q28.2 ; History of asbestos exposure Z77.090 ; Anticoagulated Z79.01 and BPH (benign prostatic hyperplasia) N40.0 Jacobo Radford III, MD [address] [place] [address] [place] [address] 02/27/2025 Jacobo Radford Lumbar radiculopathy M54.16 ; BPH (benign prostatic hyperplasia) N40.0 ; Anticoagulated Z79.01 ; Bilateral inguinal hernia without obstruction or gangrene, recurrence not specified K40.20 ; Paroxysmal atrial fibrillation I48.0 ; Former smoker Z87.891 and Overweight E66.3 Jacobo Radford III, MD [address] [place] [address] [place] [address] 11/03/2024 Jacobo Radford III, MD [address] [place] [address] [place] [address] 11/03/2024 Jacobo Radford III, MD [address] [place] [address] [place] [address] 11/28/2024 Jacobo Radford III, MD [address] [place] [address] [place] [address] 11/30/2024 Jacobo Radford III, MD [address] [place] [address] [place] [address] 01/02/2025 Jacobo Radford III, MD [address] [place] [address] [place] [address] 01/04/2025 Jacobo Radford III, MD [address] [place] [address] [place] [address] 02/12/2025 Jacobo Radford III, MD [address] [place] [address] [place] [address] 02/16/2025 Jacobo Radford Lumbar back pain M54 .50 and Low back pain, unspecified M54.50 Assessments Encounter Date Diagnosis (ICD Code) [...] trial without the medication would be indicated. 01/24/2025 Lumbar radiculopathy (ICD-10 - M54.16) He will use heat and rest on the muscle spasm. He was given a prescription for gabapentin and dexamethasone. A telephone call in 72 hours was arranged in a visit next week was scheduled. He was advised to stay home and rest on his side in the position as much as possible. 01/24/2025 Sciatica of left king e (ICD-10 - M54.32) This has been present for several days and is described as 9 out of 10. 01/29/2025 Overweight (ICD-10 - E66.3) He has gained 3 pounds and his body mass index is 27. We discussed weight reduction strategies and lifestyle modification. 01/29/2025 Lumbar radiculopathy (ICD-10 - M54.16) He has a viral load my instructions and reports a 60% decrease in the pain. He will continue on his regimen for another 3 days and then gradually return to work. 02/05/2025 Depression, unspecified depression type (ICD-10 - F32.9) He will be continued on his fluoxetine. He does not seem depressed today. At some point a trial without the medication would be indicated. 02/05/2025 Sciatica of left king e (ICD-10 - M54.32) The pain is slowly improving. He has no lumbar pain today. His medications will continue unchanged for another 7 days. If it does not resolve he will be referred to pain management for injections. 02/13/2025 Paroxysmal atrial fibrillation (ICD-10 - I48.0) He has been seen by cardiology with a follow-up visit in one year. A Holter monitor showed only sinus rhythm. He has had no palpitations recently. He was in a regular rhythm today. 02/13/2025 Depression, unspecified depression type (ICD-10 - F32.9) He will be continued on his fluoxetine. He does not seem depressed today. At some point a trial without the medication would be indicated. 02/27/2025 Lumbar radiculopathy (ICD-10 - M54.16) He has a viral load my instructions and reports a 60% decrease in the pain. He will continue on his regimen for another 3 days and then gradually return to work.TThe MRI will be done on March 02, 2025. 02/27/2025 BPH (benign prostati c hyperplasia) (ICD-10 - N40.0) He reports nocturia once or twice a night. We have discussed lifestyle modification as a way to reduce nocturia. 02/16/2025 Lumbar back pain (ICD-10 - M54.50) 05/29/2024 Hyperglycemia (ICD-1 0 - R73.9) I have ordered a comprehensive blood work with a fasting glucose to be done in the next few days. 01/24/2025 Depression, unspecified depression type (ICD-10 - F32.9) He will be continued on his fluoxetine. He does not seem depressed today. At some point a trial without the medication would be indicated. 01/29/2025 Former smoker (ICD-1 0 - Z87.891) He seems highly motivated not to smoke. We have discussed a plan to prevent relapse in times of stress and illness. 02/05/2025 Former smoker (ICD-1 0 - Z87.891) He seems highly motivated not to smoke. We have discussed a plan to prevent relapse in times of stress and illness. 02/13/2025 Former smoker (ICD-1 0 - Z87.891) He seems highly motivated not to smoke. We have discussed a plan to prevent relapse in times of stress and illness. 02/27/2025 Anticoagulated (ICD-10 - Z79.01) He was continued on the Eliquis. 02/16/2025 Low back pain, unspecified (ICD-10 - M54.50) 05/29/2024 BPH (benign prostati c hyperplasia) (ICD-10 - N40.0) He reports nocturia once or twice a night. We have discussed lifestyle modification as a way to reduce nocturia. 01/24/2025 History of hepatitis C (ICD-10 - Z86.19) He was treated in this has resolved. There is no evidence for cirrhosis of the liver. 01/29/2025 Paroxysmal atrial fibrillation (ICD-10 - I48.0) He has been seen by cardiology with a follow-up visit in one year. A Holter monitor showed only sinus rhythm. He has had no palpitations recently. He was in a regular rhythm today. 02/05/2025 Overweight (ICD-10 - E66.3) He has gained 3 pounds and his body mass index is 27. We discussed weight reduction strategies and lifestyle modification. 02/13/2025 Overweight (ICD-10 - E66.3) He has gained 3 pounds and his body mass index is 27. We discussed weight reduction strategies and lifestyle modification. 02/27/2025 Bilateral inguinal hernia without obstruction or gangrene, recurrence not specified (ICD-10 - K40.20) These are not clinically apparent. They were seen on CT scanning and will be observed. 05/29/2024 History of hepatitis C (ICD-10 - Z86.19) He was treated in this has resolved. There is no evidence for cirrhosis of the liver. 01/24/2025 History of adenomatous polyp of colon (ICD-10 - Z86.010) He will have a colonoscopy every 5 years. 01/29/2025 BPH (benign prostati c hyperplasia) (ICD-10 - N40.0) He reports nocturia once or twice a night. We have discussed lifestyle modification as a way to reduce nocturia. 02/05/2025 Osteoarthritis of spine with radiculopathy, lumbar region (ICD-10 - M47.26) He is currently asymptomatic from this problem. He is avoiding heavy lifting and excessive exertion. He will return to the office if there is an exacerbation. 02/13/2025 Arteriovenous malformation of brain (ICD-10 - Q28.2) The MRI was done February 05, 2022 with thinned without contrast at [facility]. It was read as showing no acute abnormality in the brain. The right maxillary sinus was opacified and the reading was expansive soft tissue mass into the middle meatus. An ENT evaluation will be necessary. 02/27/2025 Paroxysmal atrial fibrillation (ICD-10 - I48.0) He has been seen by cardiology with a follow-up visit in one year. A Holter monitor showed only sinus rhythm. He has had no palpitations recently. He was in a regular rhythm today. 05/29/2024 History of adenomatous polyp of colon (ICD-10 - Z86.010) He will have a colonoscopy every 5 years. 01/24/2025 Former smoker (ICD-1 0 - Z87.891) He seems highly motivated not to smoke. We have discussed a plan to prevent relapse in times of stress and illness. 01/29/2025 Depression, unspecified depression type (ICD-10 - F32.9) He will be continued on his fluoxetine. He does not seem depressed today. At some point a trial without the medication would be indicated. 02/13/2025 History of asbestos exposure (ICD-10 - Z77.090) He will have a chest x-ray periodically. 02/27/2025 Former smoker (ICD-1 0 - Z87.891) He seems highly motivated not to smoke. We have discussed a plan to prevent relapse in times of stress and illness. 05/29/2024 Former smoker (ICD-1 0 - Z87.891) He seems highly motivated not to smoke. We have discussed a plan to prevent relapse in times of stress and illness. 01/24/2025 Overweight (ICD-10 - E66.3) He has gained 3 pounds and his body mass index is 27. We discussed weight reduction strategies and lifestyle modification. 02/13/2025 Anticoagulated (ICD-10 - Z79.01) He was continued on the Eliquis. 02/27/2025 Overweight (ICD-10 - E66.3) He has gained 3 pounds and his body mass index is 27. We discussed weight reduction strategies and lifestyle modification. 05/29/2024 Arteriovenous malformation of brain (ICD-10 - Q28.2) The MRI was done February 05, 2022 with thinned without contrast at [facility]. It was read as showing no acute abnormality in the brain. The right maxillary sinus was opacified and the reading was expansive soft tissue mass into the middle meatus. An ENT evaluation will be necessary. 01/24/2025 Mucocele of maxillar y sinus (ICD-10 - J34.1) He has been referred to ENT for evaluation of a cystic lesion in his sinus. 02/13/2025 BPH (benign prostati c hyperplasia) (ICD-10 - N40.0) He reports nocturia once or twice a night. We have discussed lifestyle modification as a way to reduce nocturia. 05/29/2024 Osteoarthritis of spine with radiculopathy, lumbar region (ICD-10 - M47.26) He is currently asymptomatic from this problem. He is avoiding heavy lifting and excessive exertion. He will return to the office if there is an exacerbation. 01/24/2025 Paroxysmal atrial fibrillation (ICD-10 - I48.0) He has been seen by cardiology with a follow-up visit in one year. A Holter monitor showed only sinus rhythm. He has had no palpitations recently. He was in a regular rhythm today. 05/29/2024 History of asbestos exposure (ICD-10 - Z77.090) He will have a chest x-ray periodically. 01/24/2025 Anticoagulated (ICD-10 - Z79.01) He was continued on the Eliquis. 05/29/2024 Intracranial space-occupying lesion found on diagnostic [...] Order Date PROFILE, FASTING (COMPREHENSIVE METABOLI C) 05/29/2024 PROFILE, FASTING (COMPREHENSIVE METABOLI C) 09/30/2021 PROFILE, FASTING (COMPREHENSIVE METABOLI C) 08/01/2020 PROFILE, FASTING (COMPREHENSIVE METABOLI C) 03/20/2019 PROFILE, FASTING (COMPREHENSIVE METABOLI C) 09/19/2018 PROFILE, FASTING (COMPREHENSIVE METABOLI C) 05/24/2023 PROFILE, RANDOM (COMPREHENSIVE METABOLIC ) 01/30/2022 LIPID PANEL 09/19/2018 LIPID PANEL 05/24/2023 LIPID PANEL 09/30/2021 LIPID PANEL 08/01/2020 LIPID PANEL 03/20/2019 PSA, TOTAL 03/20/2019 PSA, TOTAL 09/19/2018 PSA, TOTAL 05/24/2023 PSA, TOTAL 05/29/2024 PSA, TOTAL 09/30/2021 PSA, TOTAL 08/01/2020 CBC w DIFF 08/01/2020 CBC w DIFF 03/20/2019 CBC w DIFF 09/19/2018 CBC w DIFF 05/24/2023 CBC w DIFF 09/30/2021 MRI LUMBAR SPINE NO CONTRAST 02/16/2025 CBC WITH AUTO DIFF 05/29/2024 SARS COV2 RNA RT PCR 10/31/2020 Lipid Panel 05/29/2024 Next Appt Details Provider Name:Jacobo Radford, 05/30/2025 09:30:00 AM, [address] [place] [address] [address], [place], [address], Insurance Providers Payer Name Payer Address Payer Phone Subscriber Number Group Number Insured Name Patient Relationship to Insured Coverage Start Date Coverage End Date [facility] [address] [place], [place] [id number] Raymundo Ritchie Self - patient is the insured Medical (General) History Medical History History ICD Code Hepatitis C virus infection without hepa tic coma, unspecified chronicity B19.20 history of cerumen impaction former smoker, 60 pack years, discontinu ed in 1993 history of tubular adenoma basal cell carcinoma right neck, excised 2016 overweight degenerative disc disease of the lumbar spine with sciatica history of depression. 2016 repaired epigastric hernia 2014, calcium 10.8 2013. Prepatellar effusion March 2017. Microscopic hematuria asbestos exposure Atrial fibrillation December 2021 Abnormality right parietal centrum ovale opacification of the right maxillary sin us Surgical History Surgery Date(Month/Year) No history Colonoscopy, Dr. Ryan, 2 polyps at as cending colon 2023 Dehydration Seizure 2021 appendectomy [facility] 2016 colonoscopy 2009 excision basal cell carcinoma right neck , Dr. Nunez 2017 colonoscopy, tubular adenoma 2013 epigastric hernia repair 2005 Hospitalization History Reason Date(Month/Year) No history Dehydration from nausea and vomiting and diarrhea 12/2021
--- OUTSIDE RECORDS SUMMARY | 2025-03-03 08:52 | XMS_ITS ---
Author Organization Jacobo Radford III, MD Address [address] [place] [address] [place] [address] Care Team Providers Care Inking Machine Tender Name Role Phone Jacobo Radford Primary Care Provider REASON FOR VISIT Referral Request Social History Sex Assigned At : Social History Observation Description Sex Assigned At Male Encounters Encounter Location Date Provider Diagnosis Jacobo Radford III, MD [address] [place] [address] [place] [address] 02/16/2025 Jacobo Radford Lumbar back pain M54.50 and Low back pain, unspecified M54.50 Assessments Encounter Date Diagnosis (ICD Code) Assessment Notes Treat ment Notes Treatment Clinical Notes 02/16/2025 Lumbar back pain (ICD-10 - M54.50) 02/16/2025 Low back pain, unspecified (ICD-10 - M54.50) Plan Of Treatment Pending Test Test Name Order Date MRI LUMBAR SPINE NO CONTRAST 02/16/2025 Next Appt Details Provider Name:Jacobo Radford, 05/30/2025 09:30:00 AM, [address] [place] [address] [place], [address], Progress Notes * Raymundo SCHWARTZ RDOB: [birth year] (70 yo M)Acc No.[id number]:02/16/2025 Patient:?Raymundo SCHWARTZ :1955???Age:70 Y???Sex:Male Address:[address] [place] [address], [place], [address] Subjective: * Chief Complaints: * ???Referral Request * Medical History:? * Surgical History:? * Hospitalization/Major Diagno stic Procedure:? * Medications:? Objective: * Vitals:? * Physical Examination:? Assessment: * Assessment: 1.?Lumbar back pain - M54.50 ???2.?Low back pain, unspecified - M54.50??? Plan: * Treatment: 2.?Low back pain, unspecifie d?Imaging: MRI LUMBAR SPINE NO CONTRAST * Procedure Codes:? * true * Date:? Generated for Markel bai/Ana Paula/eTpksmitting on:?03/03/2025 08:52 AM EDT
--- OUTSIDE RECORDS SUMMARY | 2025-03-03 08:52 | XMS_ITS ---
Author Organization Jacobo Radford III, MD Address [address] [place] [address] Care Team Providers Care Engineering Mechanic Name Role Phone Jacobo Radford Primary Care Provider Allergies Allergen (clinical drug ingredient) Drug/Non Drug Allergy documented on EMR Reaction Allergy Type Onset Date Status acetaminophen / oxycodone Percocet nausea Drug Allergy Active REASON FOR VISIT Pain beginning in left groin radiating down to the left knee, History of depression, Lumbar radiculopathy, Paroxysmal atrial fibrillation, Benign prostatic hypertrophy, History of sinus, Bilateral inguinal hernias Medications Medication SIG (Take, Route, Frequency, Duration) [...] Orally ever y 12 hrs 01/24/2025 Active amLODIPine Besylate 5 MG Oral Active Social History Tobacco Use: Social [...] Findings: Tobacco Non-User Aggressive non-smoker Vital Signs Height 66.25 in 02/27/2025 Weight 180 lbs 02/27/2025 BMI 28.83 kg/m2 02/27/2025 Encounters Encounter Location Date Provider Diagnosis Jacobo Radford III, MD [address] [place] [address] DR [place], [place] [address] 02/27/2025 Jacobo Radford Lumbar radiculopathy M54.16 ; BPH (benign prostatic hyperplasia) N40.0 ; Anticoagulated Z79.01 ; Bilateral inguinal hernia without obstruction or gangrene, recurrence not specified K40.20 ; Paroxysmal atrial fibrillation I48.0 ; Former smoker Z87.891 and Overweight E66.3 Assessments Encounter Date Diagnosis (ICD Code) Assessment Notes Treat ment Notes Treatment Clinical Notes 02/27/2025 Lumbar radiculopathy (ICD-10 - M54.16) He [...] modification as a way to reduce nocturia. 02/27/2025 Anticoagulated (ICD-10 - Z79.01) He was continued on the Eliquis. 02/27/2025 Bilateral inguinal hernia without obstruction or gangrene, recurrence not specified (ICD-10 - K40.20) These are not clinically apparent. They were seen on CT scanning and will be observed. 02/27/2025 Paroxysmal atrial fibrillation (ICD-10 - I48.0) He has been seen by cardiology with a follow-up visit in one year. A Holter monitor showed only sinus rhythm. He has had no palpitations recently. He was in a regular rhythm today. 02/27/2025 Former smoker (ICD-1 0 - Z87.891) He seems highly motivated not to smoke. We have discussed a plan to prevent relapse in times of stress and illness. 02/27/2025 Overweight (ICD-10 - E66.3) He has gained 3 pounds and his body mass index is 27. We discussed weight reduction strategies and lifestyle modification. Plan Of Treatment Medication Medication Name Sig Start Date Stop Date Notes FLUoxetine HCl 10 MG TAKE 1 CAPSULE BY M OUTH EVERY DAY Eliquis 5 MG TAKE 1 TABLET BY FRANKY TH TWICE A DAY Oral Rosuvastatin Calcium 20 MG 1 tablet Orally Once a day 12/31 Gabapentin 300 MG 1 capsule Orally thr ee times a day 01/24/2025 dexAMETHasone 2 MG 1 tablet Orally every 12 hrs 01/24/2025 amLODIPine Besylate 5 MG Oral Next Appt Details Follow Up: 2 Weeks, Reason: Office visit Provider Name:Jacobo Radford, 05/30/2025 09:30:00 AM, [address] [place] [address] DR, [address], [place], [address], Progress Notes * Raymundo SCHWARTZ RDOB: [birth year] (70 yo M)Acc No.[id number]:02/27/2025 Patient:?ASIYAANAMichaely R Provider:?Jacobo Radford MD :1955???Age:70 Y???Sex:Male Clemente e:02/27/2025 Address:[address] [place] [address], [id number] Subjective: * Chief Complaints: * ???Pain beginning in left gr oin radiating down to the left kneeHistory of depressionLumbar radiculopathyParoxysmal atrial fibrillationBenign prostatic hypertrophyHistory of sinusBilateral inguinal hernias * HPI: ???:?His main complaint now and recently is a pain that begins in his upper left hip and left groin radiating down to the left knee can last for several hours and is quite intense has not responded very well to medication although recently it has ameliorated somewhat.? He is scheduled for an MRI the upcoming Wednesday? day March 02, 2025.? We arranged telephone visit after that weekend to discuss the results.? He is to call me once if anything worsens.? He denies any leg weakness. ?Telehealth?Location of provider rendering services:?{...} [address] [facility] [address] ?Location of patient:?address listed in demographics for today's visit ?Patient identification confirmed using:?Name, ?Telehealth method:?Telephone only. Patient not visible to care provider. ?Consent:?Patient verbally consented to treatment, Patient verbally consented to billing insurance company, Patient informed of any privacy concerns related to method of visit ?Total time spent with patient (mins)?15 * ROS:?General/Constitutional:?pain?Left groin radiation to left knee.?Chills?denies.?Fatigue?admits.?Fever?denies.?ENT:?Decreased hearing?denies.?Respiratory:?Cough?denies.?Cardiovascular:?Chest pain with exertion?denies.?Dyspnea on exertion?denies.?Shortness of breath?denies.?Gastrointestinal:?Constipation?occasional.?Decreased appetite?denies.?Diarrhea?denies.?Heartburn?denies.?Nausea?denies.?Rectal bleeding?denies.?Vomiting?denies.?Hematology:?bruising?denies.?petechiae?denies.?Swollen glands?none have been noted.?Genitourinary:?Frequent urination?once a night.?Musculoskeletal:?Muscle aches?Left groin.?Painful joints?denies.?Sciatica?denies.?Weakness?denies.?Skin:?Itching?denies.?Rash?denies.?Skin lesion(s)?denies.?Neurologic:?Difficulty speaking?denies.?Dizziness?denies.?Headache?denies.?Low back pain?that is chronic.?Psychiatric:?Depressed mood?which is mild.? * Medical History:? * Surgical History:?epigastric hernia repair 2006colonoscopy, tubular adenoma 2014excision basal cell carcinoma right neck, Dr. Nunez 2017colonoscopy 2009appendectomy [facility] 2017Dehydration Seizure 2Colonoscopy, Dr. Ryan, 2 polyps at ascending colon 2023No history * Hospitalization/Major Diagno stic Procedure:?Dehydration from nausea and vomiting and diarrhea 12/2021No history * Family History:?Father: dece ased 75 yrs, Emphysema, lung cancer, osteoarthritis, diagnosed with Cancer.?Mother: alive 73 yrs, TIA, stroke, diagnosed with CVD.?Siblings: .?Spouse: alive.? One of his sisters has a history of brain cancer. A brother at 62 of urothelial cancer. The patient's has a blocked artery and is seeking treatment. * Social History:?Tobacco Use:?Tobacco Use/Smoking?Patient is a?former smoker ?How long has it been since you last smoked??> 10 years ?Additional Findings: Tobacco Non-User?Aggressive non-smoker ???He lives in [place], [place] and is retired but works 30 hours a week in the [employer] and [employer] business. In the past. He has had occupational exposure to asbestos. He has one brother and 2 sisters. He has been to [place] for 18 years and they have one child, a son, Bull. {'Smoking': 'Not discussed', 'Drinking': 'Not discussed', 'Drug Use': 'Not discussed', 'Diet': 'Not discussed', 'Exercise': 'Not discussed', 'Work Environment': 'Not discussed', 'Living Situation': 'Not discussed'}. * Medications:?TakingFLUoxetin e HCl 10 MG Capsule TAKE 1 CAPSULE BY MOUTH EVERY DAY amLODIPine Besylate 5 MG Tablet Oral Eliquis 5 MG Tablet TAKE 1 TABLET BY MOUTH TWICE A DAY Oral Rosuvastatin Calcium 20 MG Tablet 1 tablet Orally Once a day Gabapentin 300 MG Capsule 1 capsule Orally three times a day dexAMETHasone 2 MG Tablet 1 tablet Orally every 12 hrs Medication List reviewed and reconciled with the patientTaking FLUoxetine HCl 10 MG Capsule TAKE 1 CAPSULE BY MOUTH EVERY DAY Taking amLODIPine Besylate 5 MG Tablet Oral Taking Eliquis 5 MG Tablet TAKE 1 TABLET BY MOUTH TWICE A DAY Oral Taking Rosuvastatin Calcium 20 MG Tablet 1 tablet Orally Once a day Taking Gabapentin 300 MG Capsule 1 capsule Orally three times a day Taking dexAMETHasone 2 MG Tablet 1 tablet Orally every 12 hrs Medication List reviewed and reconciled with the patient * Allergies:?Percocet: nausea - Allergyno[Allergies Verified] Objective: * Vitals:?Ht: 66.25, Wt:180, B ID:28.83, Ht-cm: 168.28, Wt-k.65. Assessment: * Assessment: 1.?Lumbar radiculopathy - M5 4.16 (Primary)???Notes :He has a viral load my instructions and reports a 60% decrease in the pain. He will continue on his regimen for another 3 days and then gradually return to work.TThe MRI will be done on March 02, 2025.???2.?BPH (benign prostatic hyperplasia) - N40.0???Notes :He reports nocturia once or twice a night. We have discussed lifestyle modification as a way to reduce nocturia.???3.?Anticoagulated - Z79.01???Notes :He was continued on the Eliquis.???4.?Bilateral inguinal hernia without obstruction or gangrene, recurrence not specified - K40.20???Notes :These are not clinically apparent. They were seen on CT scanning and will be observed.???5.?Paroxysmal atrial fibrillation - I48.0???Specify :diology.???Notes :He has been seen by cardiology with a follow- up visit in one year. A Holter monitor showed only sinus rhythm. He has had no palpitations recently. He was in a regular rhythm today.???6.?Former smoker - Z87.891???Notes :He seems highly motivated not to smoke. We have discussed a plan to prevent relapse in times of stress and illness.???7.?Overweight - E66.3???Notes :He has gained 3 pounds and his body mass index is 27. We discussed weight reduction strategies and lifestyle modification.??? Plan: * Treatment: * Procedure Codes:?83380 SYNCH AUDIO-ONLY EST SF 10 * Preventive Medicine:? ??Counseling:?Smoking/Tobacco Use?Patient counseled on the dangers of tobacco use and urged to quit.?02/27/2025 * Follow Up:?2 Weeks (Reason: Office visit) * Images: * Sign off status: Completed true * Provider:?Jacobo Radford MD Date:?11/2024 Generated for Markel bai/Ana Paula/eTransmitting on:?03/03/2025 08:52 AM EDT History and Physical Notes * HPI (History of Present Illness) Category Sub-Category Detail Notes Telehealth Location of [facility] services:: {...} [address] [place] [address] Location of patient:: address listed in demographics for today's visit Patient identification confirmed using:: Name, Telehealth method:: Telephone only. Regina ent not visible to care provider. Consent:: Patient verbally c onsented to treatment, Patient verbally consented to billing insurance company, Patient informed of any privacy concerns related to method of visit Total time spent with patient (mins): 15
--- OUTSIDE RECORDS SUMMARY | 2025-03-03 08:52 | XMS_ITS ---
Author Organization Jacobo Radford III, MD Address [address] [place] [address] Care Team Providers Care Glove Parts Inspector Name Role Phone Jacobo Radford Primary Care Provider [phone] Allergies Allergen (clinical drug ingredient) Drug/Non Drug Allergy documented on EMR Reaction Allergy Type Onset Date Status acetaminophen / oxycodone Percocet nausea Drug Allergy Active REASON FOR VISIT A new acute low back pain radiating to buttock, Depression, Paroxysmal atrial fibrillation, Anticoagulated, Benign prostatic hypertrophy Medications Medication SIG (Take, Route, Frequency, Duration) Notes Start Date End Date Status Rosuvastatin Calcium 20 MG 1 tablet Oral ly Once a day 01/24/2025 Active Gabapentin 300 MG 1 capsule Orally thr ee times a day 01/24/2025 Active amLODIPine Besylate 5 MG Oral Active Eliquis 5 MG TAKE 1 TABLET BY FRANKY TH TWICE A DAY Oral Active dexAMETHasone 2 MG 1 tablet Orally ever y 12 hrs 01/24/2025 Active FLUoxetine HCl 10 MG TAKE 1 CAPSULE BY M OUTH EVERY DAY Active Social History Tobacco Use: Social History [...] Aggressive non-smoker Vital Signs Height 66.25 in 02/13/2025 Weight 180 lbs 02/13/2025 BMI 28.83 kg/m2 02/13/2025 Encounters Encounter Location Date Provider Diagnosis Jacobo Radford III, MD [address] [place] [address] [place] [address] 02/13/2025 Jacobo Radford Depression, unspecif ied depression type F32.9 ; Paroxysmal atrial fibrillation I48.0 ; Former smoker Z87.891 ; Overweight E66.3 ; Arteriovenous malformation of brain Q28.2 ; History of asbestos exposure Z77.090 ; Anticoagulated Z79.01 and BPH (benign prostatic hyperplasia) N40.0 Assessments Encounter Date Diagnosis (ICD Code) Assessment Notes Treat ment Notes Treatment Clinical Notes 02/13/2025 Depression, unspecified depression type (ICD-10 - F32.9) He will be continued on his fluoxetine. He does not seem depressed today. At some point a trial without the medication would be indicated. 02/13/2025 Paroxysmal atrial fibrillation (ICD-10 - I48.0) He has been seen by cardiology with a follow-up visit in one year. A Holter monitor showed only sinus rhythm. He has had no palpitations recently. He was in a regular rhythm today. 02/13/2025 Former smoker (ICD-1 0 - Z87.891) He seems highly motivated not to smoke. We have discussed a plan to prevent relapse in times of stress and illness. 02/13/2025 Overweight (ICD-10 - E66.3) He has gained 3 pounds and his body mass index is 27. We discussed weight reduction strategies and lifestyle modification. 02/13/2025 Arteriovenous malformation of brain (ICD-10 - Q28.2) The MRI was done February 05, 2022 with thinned without contrast at [facility]. It was read as showing no acute abnormality in the brain. The right maxillary sinus was opacified and the reading was expansive soft tissue mass into the middle meatus. An ENT evaluation will be necessary. 02/13/2025 History of asbestos exposure (ICD-10 - Z77.090) He will have a chest x-ray periodically. 02/13/2025 Anticoagulated (ICD-10 - Z79.01) He was continued on the Eliquis. 02/13/2025 BPH (benign prostati c hyperplasia) (ICD-10 - N40.0) He reports nocturia once or twice a night. We have discussed lifestyle modification as a way to reduce nocturia. Plan Of Treatment Medication Medication Name Sig Start Date Stop Date Notes Rosuvastatin Calcium 20 MG 1 tablet Orally Once a day 12/31 Gabapentin 300 MG 1 capsule Orally thr ee times a day 01/24/2025 amLODIPine Besylate 5 MG Oral Eliquis 5 MG TAKE 1 TABLET BY FRANKY TH TWICE A DAY Oral dexAMETHasone 2 MG 1 tablet Orally every 12 hrs 01/24/2025 FLUoxetine HCl 10 MG TAKE 1 CAPSULE BY M OUTH EVERY DAY Next Appt Details Follow Up: 2 Weeks, Reason: Telehealth Provider Name:Jacobo Radford, 05/30/2025 09:30:00 AM, [address] [place] [address] [address], [place], [address], Progress Notes * Raymundo SCHWARTZ RDOB: [birth year] (70 yo M)Acc No.[id number]:02/13/2025 Patient:?Raymundo SCHWARTZ Provider:?Jacobo Radford MD :1955???Age:70 Y???Sex:Male Clemente e:02/13/2025 Address:[address] [place] [address], [id number] Subjective: * Chief Complaints: * ???A new acute low back pain radiating to buttockDepressionParoxysmal atrial fibrillationAnticoagulatedBenign prostatic hypertrophy * HPI: ???:? This telehealth visit took place over 15 minutes with the patient at home and me in my office.? He gave consent for billing.? This is a follow-up visit to a new monitoring his acute low back pain.? His improvement has plateaued.? He continues to have severe lower lumbar spine pain radiating into 1 buttock.? He has been compliant with therapy.? He says not want to go for injections or take dexamethasone.? He does not want to see a surgeon about a surgical solution.? He wants to continue on physical therapy.? He was referred today for physical therapy low back muscle strengthening. ?Telehealth?Location of provider rendering services:?{...} [address] [facility] [address] ?Location of patient:?address listed in demographics for today's visit ?Patient identification confirmed using:?Name, ?Telehealth method:?Telephone only. Patient not visible to care provider. ?Consent:?Patient verbally consented to treatment, Patient verbally consented to billing insurance company, Patient informed of any privacy concerns related to method of visit ?Total time spent with patient (mins)?15 * ROS:?General/Constitutional:?pain?Lumbar spine into left buttock.?Chills?denies.?Fatigue?admits.?Fever?denies.?ENT:?Decreased hearing?denies.?Respiratory:?Cough?denies.?Cardiovascular:?Chest pain with exertion?denies.?Dyspnea on exertion?denies.?Shortness of breath?denies.?Gastrointestinal:?Constipation?occasional.?Decreased appetite?denies.?Diarrhea?denies.?Heartburn?denies.?Nausea?denies.?Rectal bleeding?denies.?Vomiting?denies.?Hematology:?bruising?denies.?petechiae?denies.?Swollen glands?none have been noted.?Genitourinary:?Frequent urination?once a night.?Musculoskeletal:?Muscle aches?denies.?Painful joints?denies.?Sciatica?denies.?Weakness?denies.?Skin:?Itching?denies.?Rash?denies.?Skin lesion(s)?denies.?Neurologic:?Difficulty speaking?denies.?Dizziness?denies.?Headache?denies.?Low back pain?denies.?Psychiatric:?Depressed mood?denies.? * Medical History:? * Surgical History:?epigastric hernia repair 2006colonoscopy, tubular adenoma 2014excision basal cell carcinoma right neck, Dr. Nunez 2017colonoscopy 2009appendectomy [facility] 2017Dehydration Seizure olonoscopy, Dr. Ryan, 2 polyps at ascending colon [...] Findings: Tobacco Non-User?Aggressive non-smoker ???He lives in [place], [place] and is retired but works 30 hours a week in the [employer] business. In the past. He has had [...] Verified] Objective: * Vitals:?Ht: 66.25, Wt:180, B GA:28.83, Ht-cm: 168.28, Wt-k.65. Assessment: * Assessment: 1.?Paroxysmal atrial fibrill ation - I48.0 (Primary)???Specify :diology.???Notes :He has been seen by cardiology with a follow-up visit in one year. A Holter monitor showed only sinus rhythm. He has had no palpitations recently. He was in a regular rhythm today.???2.?Depression, unspecified depression type - F32.9???Notes :He will be continued on his fluoxetine. He does not seem depressed today. At some point a trial without the medication would be indicated.???3.?Former smoker - Z87.891???Notes :He seems highly motivated not to smoke. We have discussed a plan to prevent relapse in times of stress and illness.???4.?Overweight - E66.3???Notes :He has gained 3 pounds and his body mass index is 27. We discussed weight reduction strategies and lifestyle modification.???5.?Arteriovenous malformation of brain - Q28.2???Notes :The MRI was done February 05, 2022 with thinned without contrast at [facility]. It was read as showing no acute abnormality in the brain. The right maxillary sinus was opacified and the reading was expansive soft tissue mass into the middle meatus. An ENT evaluation will be necessary.???6.?History of asbestos exposure - Z77.090???Notes :He will have a chest x-ray periodically.???7.?Anticoagulated - Z79.01???Notes :He was continued on the Eliquis.???8.?BPH (benign prostatic hyperplasia) - N40.0???Notes :He reports nocturia once or twice a night. We have discussed lifestyle modification as a way to reduce nocturia.??? Plan: * Treatment: * Procedure Codes:? * Preventive Medicine:? ??Counseling:?Care goal follow-up plan:?Counseling for abnormal BMI given?Yes ?Above Normal BMI Follow-up?Dietary management education, guidance, and counseling, Dietary needs education ?Smoking/Tobacco Use?Patient counseled on the dangers of tobacco use and urged to quit.?02/13/2025 * Follow Up:?2 Weeks (Reason: Telehealth) * Images: * Sign off status: Completed true * Provider:?Jacobo Radford MD Date:?01/27 Generated for Markel bai/Ana Paula/eTransmitting on:?03/03/2025 08:52 AM EDT History and Physical Notes * HPI (History of Present Illness) Category Sub-Category Detail Notes Telehealth Location of [facility] rendering services:: {...} [address] [place] [address] Location of patient:: address listed in demographics [...]
== END 2025-03-03 08:51 | disposition home or self-care (01) ==
LOC: HO.MRI 08:50
PROVIDERS: PCP Internal Medicine Medical Oncology; Visit Provider Internal Medicine Medical Oncology
DX: M54.50 Low back pain, unspecified (principal)
CPT/HCPCS: 72148

== ENCOUNTER → 2025-03-03 08:57 | Outpatient (BNV) | payer BC, SELFPAY | PROVIDERS: PCP Internal Medicine Medical Oncology; Visit Provider Radiology Diagnostic Radiology | DX: M51.360 Other intervertebral disc degeneration, lumbar region with discogenic back pain only (principal) | CPT/HCPCS: 72148 ==

== ENCOUNTER 2025-03-09 08:46 | Outpatient (AMB) | payer BC, SELFPAY ==
--- OUTSIDE RECORDS SUMMARY | 2025-03-09 08:57 | XMS_ITS ---
Author Organization Jacobo Radford III, MD Address [address] [place] [address] Care Team Providers Care Cloth Spreader Screen Printing Name Role Phone Jacobo Radford Primary Care Provider [phone] Reason For Referral Reason left centrral/forami nal disc extrusion at L4-L5 with cranial extension evaluation and treatment Diagnosis 1 Sciatica of left king e (M54.32) Diagnosis 2 Osteoarthritis of sp ine with radiculopathy, lumbar region (M47.26) Diagnosis 3 Lumbar back pain (M5 4.50) Referral Organization Jacobo Radford III, MD Referring Provider First Name Jacobo Referring Provider Last Name Malina Referring Provider Speciality Internal M edicine Referred Provider MELY POLANCO Referred Provider Specialty Neurosurgery General Notes SRanid CMA 03/05 11:11:11 AM >ref/demo/progress notes/x ray reports faxed to Dr Polanco office Referral Priority Routine Referral Appointment Date 03/08/2025 REASON FOR VISIT told patient to call Social History Sex Assigned At : Social History Observation Description Sex Assigned At Male Encounters Encounter Location Date Provider Diagnosis Jacobo Radford III, MD [address] [place] [address] [place] [address] 03/05/2025 Jacobo Radford Plan Of Treatment Referrals Referral Date Details 03/05/2025 03/05/2025, left jacinto trral/foraminal disc extrusion at L4-L5 with cranial extension evaluation and treatment, MELY POLANCO Next Appt Details Provider Name:Jacobo Radford, 05/30/2025 09:30:00 AM, [address] [place] [address] [address], [place], [address], Progress Notes * Raymundo SCHWARTZ RDOB: [birth year] (70 yo M)Acc No.[id number]:03/05/2025 Patient:?Raymundo SCHWARTZ :1955???Age:70 Y???Sex:Male Address:[address] [place] [address] L[place], [place], [address] Subjective: * Chief Complaints: * ??? told patient to call * Medical History:? * Surgical History:? * Hospitalization/Major Diagno stic Procedure:? * Medications:? Objective: * Vitals:? * Physical Examination:? Assessment: Plan: * Treatment: * Procedure Codes:? * true * Date:? Generated for Varshai richardson/Ana Paula/eTransmitting on:?03/09/2025 08:56 AM EDT Consultation Request Notes Referral Date Referring Provider Referred Provider Not es 03/05/2025 Jacobo Radford FREDERIK left jacinto trral/foraminal disc extrusion at L4-L5 with cranial extension evaluation and treatment
--- OUTSIDE RECORDS SUMMARY | 2025-03-09 08:57 | XMS_ITS | Patient Health Record ---
Author Organization Jacobo Radford III, MD Address [address] [place] [address] [facility] [place] [address] Care Team Providers Care Window Repairer Name Role Phone Jacobo Radford Primary Care [...] date:02/20/2025 09:14:28 AM Interpretation: Performing Lab: Notes/Report: [address] [address] XRay Report Signed Patient: Raymundo Schwartz MR#: [id number] : 1955 Acct:[id number] Age/Sex: 69 / M ADM Date: 01/24/25 Loc: HO.XRAY Attending Dr: Jacobo Radford MD Ordering Physician: Jacobo Radford MD Date of Service: 01/24/25 Procedure(s): XR lumbar spine 2-3V Accession Number(s): [id number] cc: Jacobo Radford MD CLINICAL HISTORY: LUMBAR [...] in OV> 01/25/25829 DD/ 8 TD/TT: 01/25/25828 Furnace Stock Inspector: [address] [address] XRay Report Signed Patient: Kati Schwartz MR#: [id number] : 1955 Acct:[id number] Age/Sex: 69 / M ADM Date: 01/24/25 Loc: HO.XRAY Attending Dr: Jacobo Radford MD Ordering Physician: Jacobo Radford MD Date of Service: 01/24/25 Procedure(s): XR lum bar spine 2-3V Accession Number(s): [id number] cc: Jacobo Radford MD CLINICAL HISTORY: JULIUS [...] in OV> 01/25/25829 DD/ 8 TD/TT: 01/25/25828 Furnace Stock Inspector: SCREENING COLONOSCOPY Reviewed date:05/25/2024 10:23:08 AM Interpretation:undefined Performing Lab: Notes/Report: undefined Basic Metabolic Panel Reviewed date:07/16/2024 08:44:30 AM Interpretation: Performing Lab:[facility], [address] [place] [address] Notes/Report: Sodium 140 135-145 mmol/L Potassium 4.4 3.3-5.1 mmol/L Chloride 106 96-108 mmol/L Carbon Dioxide 25 22-29 mmol/L Anion Gap 13 12-20 Blood Urea Nitrogen 18 9-16 mg/dL Creatinine 1.17 0.5-1.4 mg/dL Estimated Glomerular Filt Rate > 60 NOTE: For -Luxembourger individuals, multiply the result by 1.210. Chronic Kidney Disease: Estimated GFR < 60 mL/min/1.73m2 Severe Kidney Disease: Estimated GFR < 15 mL/min/1.73m2 Glucose Random 90 60-115 mg/dL Calcium 10.0 8.4-10.2 mg/dL MR lumbar spine wo con (Not yet reviewed by provider) Interpretation: Performing Lab: Notes/Report: [address] [address] Magnetic Resonance Report Signed Patient: Raymundo Schwartz MR#: [id number] : 1955 Acct:[id number] Age/Sex: 70 / M ADM Date: 03/03/25 Loc: HO.MRI Attending Dr: Jacobo Radford MD Ordering Physician: Jacobo Radford MD Date of Service: 03/03/25 Procedure(s): MR lumbar spine wo con Accession Number(s): [id number] cc: Jacobo Radford MD CLINICAL HISTORY: BP, LBP RADIATING DOWN LEGS MR lumbar spine without gadolinium Comparison: CR/SR - XR LUMBAR SPINE 2-3V - 01/24/25 14:13 EST Findings: Mild lumbar levocurvature is better seen on the prior radiographs. The usual lumbar lordosis is maintained without spondylolisthesis. Vertebral body heights are maintained. Multilevel degenerative endplate changes which are most conspicuous on the left at L1-L2. Conus medullaris terminates normally at L1-L2. A 1 cm intracanalicular Tarlov cyst is present at the superior aspect of S3. Bilateral renal cysts. L1-L2: A disc osteophyte complex indents the thecal sac and mildly narrows the left lateral recess. Neural foraminal narrowing is moderate to severe on the left. L2-L3: A disc osteophyte complex indents the thecal sac. Mild right and minimal left neural foraminal narrowing. L3-L4: A disc osteophyte complex indents the thecal sac. Neural foraminal narrowing is moderate on the right. L4-L5: A disc osteophyte complex indents the thecal sac. There is a superimposed left central/foraminal disc extrusion and/or epidural hematoma which abuts the transiting left L5 nerve root and moderately narrows the left neural foramen. Cranial extension measures 1.3 cm along the L4 posterior endplate. Mild bilateral facet osteoarthritis. Minimal right neural foraminal narrowing. L5-S1: A small disc osteophyte complex minimally indents the thecal sac. Mild left facet osteoarthritis. Neural foraminal narrowing is moderate on the left. IMPRESSION: 1. Acute left lower extremity radiculopathy is likely related to a left central/foraminal disc extrusion and/or epidural hematoma at L4-L5 with 1.3 cm of cranial extension which abuts the transiting left L5 nerve root and moderately narrows the left neural foramen. 2. Additional multilevel degenerative changes as above. This document has been electronically signed by: Asad Vieyra DO on 03/03/2025 11:19:36 Dictated By: Asad Vieyra MD Signed By: <Electronically signed by Asad Vieyra MD in OV> 03/03/25 1120 DD/ 1119 TD/TT: 03/03/25 1119 Furnace Stock Inspector: [place] [id number] Magnetic Resonance Report Signed Patient: Kati Schwartz MR#: [id number] : 1955 Acct:[id number] Age/Sex: 70 / M ADM Date: 03/03/25 Loc: HO.MRI Attending Dr: Jacobo Radford MD Ordering Physician: Jacobo Radford MD Date of Service: 03/03/25 Procedure(s): MR lum bar spine wo con Accession Number(s): [id number] cc: Jacobo Radford MD CLINICAL HISTORY: BP , LBP RADIATING DOWN LEGS MR lumbar spine with out gadolinium Comparison: CR/SR - XR LUMBAR SPINE 2-3V - 01/24/25 14:13 EST Findings: Mild lumbar levocurv ature is better seen on the prior radiographs. The usual lumbar lordosi s is maintained without spondylolisthesis. Vertebral body heigh ts are maintained. Multilevel degenerative endplate changes which are mo st conspicuous on the left at L1-L2. Conus medullaris terminates normally at L1-L2. A 1 cm intracanalicular Tarlov cyst is prese nt at the superior aspect of S3. Bilateral renal cysts. L1-L2: A disc osteop hyte complex indents the thecal sac and mildly narrows the left lateral rec ess. Neural foraminal narrowing is moderate to severe on the left. L2-L3: A disc osteop hyte complex indents the thecal sac. Mild right and minimal left neural foraminal narrowing. L3-L4: A disc osteop hyte complex indents the thecal sac. Neural foraminal narrowing is moderat e on the right. L4-L5: A disc osteop hyte complex indents the thecal sac. There is a superimposed left central/foraminal disc extrusion and/or epidural hematoma which abuts the transiting left L5 nerve root and moderately narrows the left amanda ral foramen. Cranial extension measures 1.3 cm along the L4 posterior endplate. Mild bilateral facet osteoarthritis. Minimal right neural foramin al narrowing. L5-S1: A small disc osteophyte complex minimally indents the thecal sac. Mild left facet osteoarthritis. Neural foraminal narrowing is moderate on the left. IMPRESSION: 1. Acute left lower extremity radiculopathy is likely related to a left central/foraminal di sc extrusion and/or epidural hematoma at L4-L5 with 1.3 cm of cranial extension which abuts the transiting left L5 nerve root and moderately narro ws the left neural foramen. 2. Additional multil evel degenerative changes as above. This document has be en electronically signed by: Asad Vieyra DO on 03/03/2025 11:19:36 Dictated By: Asad Vieyra MD Signed By: <Electronically signed by Asad Vieyra MD in OV> 03/03/25 1120 DD/ 1119 TD/TT: 03/03/25 1119 Furnace Stock Inspector: Reason For Referral Reason left centrral/forami nal [...] POLANCO Referred Provider Specialty Neurosurgery General Notes Randi Jj CMA 03/05 11:11:11 AM >ref/demo/progress notes/x ray reports faxed to Dr Polanco office Referral Priority Routine Referral Appointment Date 03/08/2025 Medications Medication SIG (Take, Route, Frequency, Duration) [...] Problem Status W/U Status Risk Notes Problem 1142319 Former smoker (Z87.891) Active confirmed He seems highly motivated not to smoke. We have discussed a plan to prevent relapse in times of stress and illness. Problem 945804248 Overweight (E66.3) Active confirmed He has gained 3 pounds and his body mass index is 27. We discussed weight reduction strategies and lifestyle modification. Problem 71650627 Hyperglycemia (R73.9) Active confirmed I have ordered a comprehensive blood work with a fasting glucose to be done in the next few days. Problem Lumbar radiculopathy (620901064) Lumbar radiculopathy (M54.16) Active confirmed He has a viral load my instructions and reports a 60% decrease in the pain. He will continue on his regimen for another 3 days and then gradually return to work.TThe MRI will be done on March 02, 2025. Problem 214742676 Paroxysmal atrial fibrillation (I48.0) Active confirmed He has been seen by cardiology with a follow-up visit in one year. A Holter monitor showed only sinus rhythm. He has had no palpitations recently. He was in a regular rhythm today. Problem 03060460 Chronic maxillary sinusitis (J32.0) Active confirmed The right maxillary sinus was opacified on the MRI with a suggestion of a soft tissue mass invading the meatus. An ENT consultation has been requested. Problem Mass of intracranial structure (finding) (32660671) Intracranial space-occupying lesion found on diagnostic imaging of central nervous system (R90.0) Active confirmed He has had no intracranial bleeding and is free of symptoms at this time. Observation will continue. Problem Benign prostatic hyperplasia (135181322) BPH (benign prostatic hyperplasia) (N40.0) Active confirmed He reports nocturia once or twice a night. We have discussed lifestyle modification as a way to reduce nocturia. Problem 491526616 Anticoagulated (Z79.01) Active confirmed He was continued on the Eliquis. Problem 575483336 History of adenomatous polyp of colon (Z86.010) Active confirmed He will have a colonoscopy every 5 years. Problem 50984368 Bilateral inguinal hernia without obstruction or gangrene, recurrence not specified (K40.20) Active confirmed These are not clinically apparent. They were seen on CT scanning and will be observed. Problem Depressive disorder (disorder) (98422840) Depression, unspecified depression type (F32.9) Active confirmed He will be continued on his fluoxetine. He does not seem depressed today. At some point a trial without the medication would be indicated. Problem Atrial fibrillation (24907135) A-fib (I48.91) Active confirmed Problem 08860194769814 History of hepatitis C (Z86.19) Active confirmed He was treated in this has resolved. There is no evidence for cirrhosis of the liver. Problem 505896806833097 Sciatica of left side (M54.32) Active confirmed The pain is slowly improving. He has no lumbar pain today. His medications will continue unchanged for another 7 days. If it does not resolve he will be referred to pain management for injections. Problem 064065961 Osteoarthritis of spine with radiculopathy, lumbar region (M47.26) Active confirmed He is currently asymptomatic from this problem. He is avoiding heavy lifting and excessive exertion. He will return to the office if there is an exacerbation. 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 It was read as showing no acute abnormality in the brain. The right maxillary sinus was opacified and the reading was expansive soft tissue mass into the middle meatus. An ENT evaluation will be necessary. Problem 963647551 History of asbestos exposure (Z77.090) Active confirmed He will have a chest x-ray periodically. 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 Problem 170323400 Vasovagal episode (R55) Active confirmed Vital Signs Heart Rate 74 /min 01/24/2025 Temperature 97.2 degrees Fahrenheit 01/24/2025 Blood pressure diastolic 82 mm Hg 01/24/2025 Height 66.25 in 02/27/2025 Blood pressure systolic 129 mm Hg 01/24/2025 Weight 180 lbs 02/27/2025 BMI 28.83 kg/m2 02/27/2025 Encounters Encounter Location Date Provider Diagnosis Jacobo Radford III, MD [address] [place] [address] [place] [address] 05/29/2024 Jacobo Radford Overweight E66.3 ; Depression, [...] maxillary sinus C31.0 Jacobo Radford III, MD [address] [place] [address] [place] [address] 01/24/2025 Jacobo Radford Lumbar radiculopathy M54.16 ; Sciatica of left side M54.32 ; Depression, unspecified depression type F32.9 ; History of hepatitis C Z86.19 ; History of adenomatous polyp of colon Z86.010 ; Former smoker Z87.891 ; Overweight E66.3 ; Mucocele of maxillary sinus J34.1 ; Paroxysmal atrial fibrillation I48.0 and Anticoagulated Z79.01 Jacobo Radford III, MD [address] [place] [address] [place] [address] 01/29/2025 Jacobo Radford Lumbar radiculopathy M54.16 ; Overweight E66.3 ; Former smoker Z87.891 ; Paroxysmal atrial fibrillation I48.0 ; BPH (benign prostatic hyperplasia) N40.0 and Depression, unspecified depression type F32.9 Jacobo Radford III, MD [address] [place] [address] [place] [address] 02/05/2025 Jacobo Radford Sciatica of left king e M54.32 ; Depression, unspecified depression type F32.9 ; Former smoker Z87.891 ; Overweight E66.3 and Osteoarthritis of spine with radiculopathy, lumbar region M47.26 Jacobo Radford III, MD [address] [place] [address] [place] [address] 02/13/2025 Jacobo Radford Depression, unspecif ied depression type F32.9 ; Paroxysmal atrial fibrillation I48.0 ; Former smoker Z87.891 ; Overweight E66.3 ; Arteriovenous malformation of brain Q28.2 ; History of asbestos exposure Z77.090 ; Anticoagulated Z79.01 and BPH (benign prostatic hyperplasia) N40.0 Jacobo Radford III, MD [address] [place] [address] [place] [address] 02/27/2025 Jacobo Radford Lumbar radiculopathy M54.16 ; BPH (benign prostatic hyperplasia) N40.0 ; Anticoagulated Z79.01 ; Bilateral inguinal hernia without obstruction or gangrene, recurrence not specified K40.20 ; Paroxysmal atrial fibrillation I48.0 ; Former smoker Z87.891 and Overweight E66.3 Jacobo Radford III, MD [address] [place] [address] [place] [address] 11/03/2024 Jacobo Radford III, MD [address] [place] [address] [place] [address] 11/03/2024 Jacobo Radford III, MD [address] [place] [address] [place] [address] 11/28/2024 Jacobo Radford III, MD [address] [place] [address] [place] [address] 11/30/2024 Jacobo Radford III, MD [address] [place] [address] [place] [address] 01/02/2025 Jacobo Radford III, MD [address] [place] [address] [place] [address] 01/04/2025 Jacobo Radford III, MD [address] [place] [address] [place] [address] 02/12/2025 Jacobo Radford III, MD [address] [place] [address] [place] [address] 02/16/2025 Jacobo Radford Lumbar back pain M54 .50 and Low back pain, unspecified M54.50 Jacobo Radford III, MD [address] [place] [address] [place] [address] 03/05/2025 Jacobo Radford Assessments Encounter Date Diagnosis (ICD [...] 05, 2022 with thinned without contrast at [facility]. It was read as showing no acute [...] 05, 2022 with thinned without contrast at [facility]. It was read as showing no acute [...] RNA RT PCR 10/31/2020 Lipid Panel 05/29/2024 MR lumbar spine wo con 03/03/2025 Next Appt Details Provider Name:Jacobo Radford, 05/30/2025 09:30:00 AM, [address] [place] [address] [address] [place], [place], [address], Insurance Providers Payer Name Payer Address Payer Phone Subscriber Number Group Number Insured Name Patient Relationship to Insured Coverage Start Date Coverage End Date [facility] [address] [place], [place] [phone] [id number] Raymundo Ritchie Self - patient is the [...] cending colon 2023 Dehydration Seizure 2021 appendectomy [facility] 2016 colonoscopy 2009 excision basal cell carcinoma right neck , Dr. Nunez 2017 colonoscopy, tubular adenoma 2013 epigastric hernia repair 2005 Hospitalization History Reason Date(Month/Year) No history Dehydration from nausea and vomiting and diarrhea 12/2021
--- OUTSIDE RECORDS SUMMARY | 2025-03-09 08:57 | XMS_ITS ---
Author Organization Jacobo Radford III, MD Address [address] [place] [address] [place] [address] Care Team Providers Care Assembler Body Name Role Phone Jacobo Radford Primary Care Provider [phone] REASON FOR VISIT Referral Request Social History Sex Assigned At : Social History Observation Description Sex Assigned At Male Encounters Encounter Location Date Provider Diagnosis Jacobo Radford III, MD [address] [place] [address] [place] [address] 02/16/2025 Jacobo Radford Lumbar back pain M54.50 [...] Details Provider Name:Jacobo Radford, 05/30/2025 09:30:00 AM, [address] [place] [address] [place], [address], Progress Notes * Raymundo SCHWARTZ RDOB: [birth year] (70 yo M)Acc No.[id number]:02/16/2025 Patient:?Raymundo SCHWARTZ :1955???Age:70 Y???Sex:Male Address:[address] [place] [address], [place], [address] Subjective: * Chief Complaints: * ???Referral Request [...] * Date:? Generated for Markel bai/Ana Paula/eTpksmitting on:?03/09/2025 08:56 AM EDT
--- OUTSIDE RECORDS SUMMARY | 2025-03-09 08:57 | XMS_ITS ---
Author Name [facility] Organization Unknown Encounters Encounter Type Encounter Reason Primary Diagnosis Location Date Ambulatory [facility] 03/20/2024 Care Team Organization Name Specialty Phone Email Start Date End Da te [facility] 03/24/2024 02/14/[address] [facility] 02/22/2024
--- OUTSIDE RECORDS SUMMARY | 2025-03-09 08:57 | XMS_ITS ---
Author Organization Jacobo Radford III, MD Address [address] [place] [address] Care Team Providers Care Gauge Inspector Name Role Phone Jacobo Radford Primary Care Provider [phone] Allergies Allergen (clinical drug ingredient) Drug/Non Drug [...] Date Provider Diagnosis Jacobo Radford III, MD [address] [place] [address] [address] [place], [place] [address] 02/27/2025 Jacobo Radford Lumbar radiculopathy M54.16 ; [...] visit Provider Name:Jacobo Radford, 05/30/2025 09:30:00 AM, [address] [place] [address] [address], [address], [place], [address], Progress Notes * Raymundo SCHWARTZ RDOB: [birth year] (70 yo M)Acc No.[id number]:02/27/2025 Patient:?ASIYAANAMichaely R Provider:?Jacobo Radford MD :1955???Age:70 Y???Sex:Male Clemente e:02/27/2025 Address:[address] [place] [address], [phone] Subjective: * Chief Complaints: * ???Pain beginning [...] weakness. ?Telehealth?Location of provider rendering services:?{...} [address] [facility] [address] ?Location of patient:?address listed in demographics for [...] carcinoma right neck, Dr. Nunez 2017colonoscopy 2009appendectomy [facility] 2017Dehydration Seizure 2Colonoscopy, Dr. Ryan, 2 [...] Findings: Tobacco Non-User?Aggressive non-smoker ???He lives in [place], [place] and is retired but works 30 hours a week in the [employer] and [employer] business. In the past. He has had [...] Verified] Objective: * Vitals:?Ht: 66.25, Wt:180, B NJ:28.83, Ht-cm: 168.28, Wt-k.65. Assessment: * Assessment: 1.?Lumbar [...] lifestyle modification.??? Plan: * Treatment: * Procedure Codes:?21456 SYNCH AUDIO-ONLY EST SF 10 * Preventive Medicine:? ??Counseling:?Smoking/Tobacco Use?Patient counseled on the dangers of tobacco use and urged to quit.?02/27/2025 * Follow Up:?2 Weeks (Reason: Office visit) * Images: * Sign off status: Completed true * Provider:?Jacobo Radford MD Date:?11/2024 Generated for Markel bai/Ana Paula/eTransmitting on:?03/09/2025 08:56 AM EDT History and Physical Notes * HPI (History of Present Illness) Category Sub-Category Detail Notes Telehealth Location of [facility]:: {...} [address] [facility] [address] [place] [address] Location of patient:: address listed in demographics [...]
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
== END 2025-03-09 10:03 | disposition home or self-care (01) ==
LOC: HO.HNS 08:46
PROVIDERS: PCP Internal Medicine Medical Oncology; Referring Provider Internal Medicine Medical Oncology; Visit Provider Physician Assistant
DX: M51.26 Other intervertebral disc displacement, lumbar region (principal)
CPT/HCPCS: 99204

== ENCOUNTER → 2025-06-18 07:49 | Outpatient (REF) | payer BC, SELFPAY ==
--- OUTSIDE RECORDS SUMMARY | 2025-05-30 13:15 | XMS_ITS ---
Author Organization Jacobo Radford III, MD Address [address] [place] [address] [place] [address] Care Team Providers Care Detention Sergeant Name Role Phone Jacobo Radford Primary Care Provider REASON FOR VISIT Annual exam Social History Sex Assigned At : Social History Observation Description Sex Assigned At Male Encounters Encounter Location Date Provider Diagnosis Jacobo Radford III, MD [address] [place] [address] [place] [address] 05/30/2025 Jacobo Radford Plan Of Treatment Next Appt Details Provider Name:Jacobo Radford, 07/05/2025 09:00:00 AM, [address] [place] [address] [place], [id number], Provider Name:Jacobo Radford, 10/16/2025 09:00:00 AM, [address] [place] [address] [place], [address], Progress Notes * Raymundo SCHWARTZ RDOB: [birth year] (70 yo M)Acc No.[id number]:05/30/2025 Progress Notes Patient: Raymundo IRBY Provider: Noé Radford MD :1955 A ge:70 Y S ex:Male Date:05/30/2025 Address:[address] [place], [id number] Subjective: * Chief Complaints: * 1 . Annual exam. * Medical History: Objective: * Vitals: Assessment: Plan: * Treatment: * Images: * The named appointment provid er may or may not be the originator of this progress note, and it is not deemed complete until electronically signed by the appointment provider. Sign off status: Pending * Provider: Noé Radford MD Date: 05/30/2025 Generated for Markel bai/Ana Paula/Holly on: 06/18/2025 07:52 AM EDT
--- OUTSIDE RECORDS SUMMARY | 2025-06-18 07:54 | XMS_ITS | Patient Health Record ---
[facility] Address [address] [place] [address] Care Team Providers Care Subway Guard Name Role Phone Jacobo Radford MD Primary Care Provider UnavailKev Warren Unavailable [phone] Allergies Allergen (clinical drug ingredient) Drug/Non Drug Allergy documented on EMR Reaction Allergy Type Onset Date Status acetaminophen / oxycodone Percocet vomitting Drug Allergy Active Reason For Referral No Information Medications Medication SIG (Take, Route, Frequency, Duration) Notes Start Date End Date Status Keflex 500 MG 1 capsule Orally christal ry 12 hrs; Duration: 10 day(s) 05/31/2014 Not-Taking Ciclopirox 8 % 1 drop to affected a bhargav Externally Once a day Not-Taking Azithromycin 250 MG TAKE 2 TABLETS ON FIRST DAY, THEN 1 TABLET DAILY FOR 4 DAYS ONCE A DAY ORALLY Oral; Duration: 5 Not-Taking MoviPrep 100 GM TAKE DIRECTED ON PACKAGE Oral; Duration: 1 Not-Taking Clobetasol Propionate 0.05 % APPLY TWICE A DAY TO ECZEMA DIRECTED External; Duration: 30 Not-Takin g Cephalexin 500 MG TAKE 1 CAPSULE EVERY 12 HRS TIL GONE Oral; Duration: 10 Not-Taking Naftin 1 % APPLY DAILY External ; Duration: 14 Not-Taking Amoxicillin 500 MG TAKE 1 CAPSULE EVERY 8 HOURS Oral; Duration: 10 Not-Taking FLUoxetine HCl 10 MG 1 capsule Orally On ce a day; Duration: 30 day(s) Active Problems Problem Type SNOMED Code ICD Code Onset Dates Problem Status W/U Status Risk Notes Problem Information temporarily unavailable Onychomycosis (110.1) Active confirmed Problem Information temporarily unavailable Onychomycosis (110.1) Active confirmed Problem Information temporarily unavailable Burn Foot (945.02) Active confirmed Problem Information temporarily unavailable Tinea Pedis (110.4) Active confirmed Plan Of Treatment Pending Test Test Name Order Date [id number] NAIL, 6 OR MORE 08/31/2011 [id number] NAIL, 6 OR MORE 12/02/2011 [id number] NAIL, 6 OR MORE 05/16/2012 Insurance Providers Payer Name Payer Address Payer Phone Subscriber Number Group Number Insured Name Patient Relationship to Insured Coverage Start Date Coverage End Date [facility] [address] [place] [address] [id number] Spouse - patient is the spouse of the insured Medical (General) History Medical History History ICD Code chicken pox liver disease Hiatal hernia hepatitis A hepatitis C back, hip, knee pain Depression Surgical History Surgery Date(Month/Year) hernia repair 2002 knee surgery 2010 liver 2009 appendectomy 2017
--- OUTSIDE RECORDS SUMMARY | 2025-06-18 07:54 | XMS_ITS ---
[facility] Name [facility] Encounters Encounter Type Encounter Reason Primary Diagnosis Location Date Ambulatory [facility] [email or web address] 03/20/2024 Care Team Organization Name Specialty Phone Email Start Date End Da te [facility] 03/24/2024 02/14/2025 [facility] 02/22/2024
--- NOTE | 2025-06-18 08:00 | CA_ITS ---
Transthoracic Echocardiogram Patient (Last, First, Middle): Raymundo Schwartz R Gender: Male Date of : 1955 Age: 70 Procedure Date: 06/18/2025 Procedure Type: Transthoracic Echocardiogram Location: OP Height: 172.72 cm Weight: 77.11 kg BSA: 1.91 m2 Heart Rate: 38 bpm BP: 138 / 84 mmHg Cat Swamper: SB Referring MD: Joey Jones MD Symptoms: I71.20 - Thoracic aortic aneurysm, without rupture, unspecified Study Quality: Adequate ECG Rhythm: Atrial Fibrillation Conclusions: - The left ventricular systolic function is normal. The calculated ejection fraction is 61% by biplane method. - There is mild dilatation of the sinuses of Valsalva measuring 4.10 cm and mild dilatation of the ascending aorta measuring 4.00 cm. - No obvious valvular pathology seen on this study. Findings Left Ventricle Normal left ventricular cavity size. There is normal left ventricular wall thickness. The left ventricular systolic function is normal. The calculated ejection fraction is 61% by biplane method. Diastolic function is indeterminate on the basis of available data. Possible basal inferior wall hypokinesis, but could also be just be an artifactual finding. Right Ventricle Normal right ventricular cavity size. There is mildly decreased right ventricular systolic function. Atria Both atria are normal in size. Aortic Valve There is a normal trileaflet aortic valve. There is no aortic valve stenosis. There is no aortic valve regurgitation. Mitral Valve The mitral valve appears normal. There is no mitral valve regurgitation. There is no mitral valve stenosis. Pulmonic Valve The pulmonic valve is likely normal. Tricuspid Valve There is trace tricuspid valve regurgitation. There is no evidence of pulmonary hypertension. Great Vessels There is mild dilatation of the sinuses of Valsalva measuring 4.10 cm and mild dilatation of the ascending aorta measuring 4.00 cm. Venous The inferior vena cava is normal in size and collapses greater than 50% with inspiration. Pericardium/Pleural There is no evidence of pericardial effusion. Prior Study Comparison No significant change compared to prior study dated: 11/09/2023. Slight change in ascending aortic size, but possibly technical. Recommendations, Care & Conclusions No obvious valvular pathology seen on this study. Measurements 2D Linear Measurements IVSd: 0.90 0.6-0.9/0.6-1.0 cm LVIDd: 5.09 3.9-5.3/4.2-5.9 cm LVIDd Index: 2.66 2.4-3.2/2.2-3.1 cm/m2 LVIDs: 3.33 2.0-3.6 cm LVPWd: 0.69 0.7-1.1 cm LA Diam: 4.40 2.7-3.8/3.0-4.0 cm LAIDs Index: 2.30 1.5-2.3 cm/m2 LV Mass: 172.71 67-162/88-224 g LV Mass Index: 90.43 43-95/49-115 g/m2 LVOT Diam: 2.40 3.0+(-)1.3 cm 2D Systolic Function EF 4C: 63.80 >55% EF 2C: 58.50 >55% EF BiP: 61.20 >55% Mitral Valve MV Pk E: 0.85 MV Decel Time: 229.00 Aortic Valve AoV Pk Ananth: 0.95 AoV Pk Grad: 4.00 ALYSSIA: 3.07 LVOT LVOT Pk Ananth: 0.65 LVOT Mn Ananth: 0.44 LVOT VTI: 0.14 LVOT Pk Grad: 2.00 LVOT Mn Grad: 1.00 LVOT Diam: 2.40 LVOT Area: 4.52 Diastolic Function MV Pk E: 0.85 Right Ventricle TAPSE (mm): 19.80 TVS' Ananth: 7.62 Tricuspid Valve TR Pk Ananth: 1.83 TR Pk Grad: 13.00 Great Vessels Aorta Sinus of Valsalva: 4.10 2.0-3.5 cm Ao Asc: 4.00 2.1-3.4 cm Ao Arch: 3.70 Pulmonary Valve PV Pk Ananth: 0.61 Peak PV Grad: 1.00 Updated in Other Vendor System with Status of Final Lowell Fuentes MD electronically signed on 06/19/2025 10:23:21 AM with status of Final
--- NOTE | 2025-06-18 08:40 | HO.CARDTECH ---
06/18/2025 @ 0845 Dr. Jones notified of pt heartrate of mid 30s to 40s during the study and that pt states he stopped taking his blood pressure medication due to him passing out frequently.
== END ==
LOC: HO.CARD 07:49
PROVIDERS: PCP Internal Medicine Medical Oncology; Visit Provider Internal Medicine Cardiovascular Disease
DX: I71.20 Thoracic aortic aneurysm, without rupture, unspecified (principal)
CPT/HCPCS: 93306

== ENCOUNTER → 2025-06-18 08:00 | Outpatient (BNV) | payer BC, SELFPAY | PROVIDERS: PCP Internal Medicine Medical Oncology; Visit Provider Internal Medicine | DX: I71.21 Aneurysm of the ascending aorta, without rupture (principal) | CPT/HCPCS: 93306 ==

== ENCOUNTER 2025-09-24 09:03 | Outpatient (AMB) | payer BC, SELFPAY ==
--- NOTE | 2025-09-24 09:30 | HO.SPINEOV ---
Intake Visit Reasons: discuss sx Intake Note: Mr. Schwartz is here today to Discuss Surgery. Family Engagement Specialist Required: No Allergies oxycodone (From PERCOCET) Adverse Reaction (Intermediate, Verified 09/24/25 09:40) VOMITING Assessment & Plan Assessment & Plan (1) Lumbar disc herniation: Code(s): M51.26 - Other intervertebral disc displacement, lumbar region Category: Medical Plan Mr Schwartz came back to see me in follow-up. He was tentatively scheduled for left L4-[address] removal [address] Sethi last March, but ultimately ended up undergoing a watchman procedure and had to be on Plavix for an extended period of time. In the interim, his pain has gotten significantly better to where he is no longer really feeling much pain at all just a little bit in his distal calf. On exam his strength is back to full. He is walking more normal and is really feeling improved. I think the disc has reabsorbed and in light of that, he no longer needs surgery. If the pain returns, obviously we can see him back and get a new MRI and have further discussion but for now he can carry on with life without any specific restrictions. Total amount of time spent in this visit was 20 minutes in discussion of symptoms, previous lumbar MRI imaging results and subsequent plan of care Francisco Javier Sethi MD,PhD [facility] Coding Level of Care Code Est Pt Level 3 (49877) Diagnoses Lumbar disc herniation M51.26
--- OUTSIDE RECORDS SUMMARY | 2025-09-24 09:50 | XMS_ITS | Clinical Summary ---
Author Organization [facility] Address [address] [place] [id number] Phone Care Team Providers Care Pottery Striper Name Role Phone Peter Still MD Primary Care Provider [phone] Allergies No known active allergies Medications ciclopirox (LOPROX) 1 % shampoo Apply daily to areas on body for 5 minutes in shower 1 Bottle 5 08/09/2017 Active ciclopirox (CICLODAN) 0.77 % cream Apply daily to affected areas after shower 90 g 3 08/09/2017 Active Social History Tobacco Use Types Packs/Day Years Used Date Smoking Tobacco: Never Assessed Education Answer Date Recorded Are you interested in more education? Not on agustin e 03/26/2023 Are you concerned about learning? Not on file 03/26/2023 No 03/26/2023 No 03/26/2023 Digital Access Answer Date Recorded No 04/26/2023 No 04/26/2023 No 04/26/2023 Reliable internet access at home? Not on file 04/26/2023 Device with a working camera? Not on file Sex and Gender Information Value Date Recorded Sex Assigned at Not on file Legal Sex Male 11:51 AM EDT Gender Identity Not on file Sexual Orientation Not on file Plan of Treatment Health Maintenance Due Date Last Done Comments Adult Td,Tdap Booster 1955 LIPID PANEL 1955 DEPRESSION SCREENING 1968 SMOKING Hx and SMOKELESS TOBACCO SCREENING 02/10/1969 HEPATITIS C SCREENING 02/10/1974 COLOGUARD 02/10/2001 COLONOSCOPY 02/10/2001 COLORECTAL CANCER SCREENING 02/10/2001 FIT TEST 02/10/2001 FOBT 02/10/2001 SIGMOIDOSCOPY 02/10/2001 VIRTUAL COLONOSCOPY 02/10/2001 PNEUMOCOCCAL VACCINES (50+ years) (1 of 1 - PCV) 02/10/2006 ZOSTER VACCINES (1 of 2) 02/10/2006 INFLUENZA VACCINE (#1) 2025 COVID-19 VACCINE (3 - 2024-2 6 season) 2025 04/07/2021, 03/17/2021 RSV VACCINE (1 - 1-dose 75+ series) 02/10/2031 HEPATITIS A VACCINES Aged Out No long er eligible based on patient's age to complete this topic HIB VACCINES Aged Out No longer eligi ble based on patient's age to complete this topic MENINGOCOCCAL VACCINES (ACWY) Aged Out No longer eligible based on patient's age to complete this topic MENINGOCOCCAL VACCINES (B) Aged Out N o longer eligible based on patient's age to complete this topic Medical Devices Not on file [facility] [place] [address] [place] [address] [address] [place] [address] [facility] [address] [place] [address] [address] [place], [place] [address] POS Care Teams Pottery Striper Relationship Specialty Start Date End Date Peter Still MD PCP - General Family Medicine 06/14/17 Additional Source Comments The information contained in this document represents components of the legal health record. It is not the complete legal health record.[facility]
== END 2025-09-24 11:28 | disposition home or self-care (01) ==
LOC: HO.HNS 09:03
PROVIDERS: PCP Internal Medicine Medical Oncology; Visit Provider Physician Assistant
DX: M51.26 Other intervertebral disc displacement, lumbar region (principal)
CPT/HCPCS: 99213